=== PATIENT | female | born 1995 | race Caucasian/White ===

== ENCOUNTER 2024-07-08 15:29 | Emergency (ER) | payer MEDICAID, SELFPAY ==
[2024-07-08 15:36] VITALS: BP 104/82; PULSE 93; RESP 14; TEMP 36.6; O2SAT 99
--- NOTE | 2024-07-08 17:05 | ED.SKABFB ---
HPI - Skin/Abscess/Foreign Bdy General Chief complaint: Skin/Abscess/Foreign Body Stated complaint: rash on legs Time Seen by Provider: 07/08/24 16:08 Source: patient Mode of arrival: ambulatory Limitations: no limitations History of Present Illness HPI narrative: This is a 29 year old female that presents to the ER for a rash to the legs. Reports the rash is itchy and painful. Noted it a couple of days ago to the left calf. Now is present on the right thigh. No new exposures. Denies fevers. Related Data Allergies Allergy/AdvReac Type Severity Reaction Status Date / Time No Known Allergies Allergy Verified 07/08/24 15:31 Review of Systems Review of Systems: CONSTITUTIONAL: Denies fever SKIN: Reports rash and itching. All systems reviewed & are unremarkable except as noted in HPI and below PMFSH Past Medical History Medical History (Updated 07/08/24 @ 17:23 by [place]ia Lindsay PA-C) History of asthma Exam Narrative: GENERAL: Well-appearing, well-nourished, and in no acute distress. HEAD: Normocephalic, atraumatic. EYES: EOMI. EXTREMITIES: Normal range of motion. No edema. Few small ulcerating lesions to the left calf and right posterior thigh. No surrounding redness SKIN: Warm, dry, no rash. NEURO: No focal deficits. Alert and oriented x3. PSYCH: Normal mood and affect Course Course Emergency Course: Patient agrees with plan of care Vital Signs Vital signs: Vital Signs Temperature 97.8 F 07/08/24 15:36 Pulse Rate 93 07/08/24 15:36 Respiratory Rate 14 07/08/24 15:36 Blood Pressure 104/82 07/08/24 15:36 Pulse Oximetry 99 07/08/24 15:36 Oxygen Delivery Room Air 07/08/24 15:36 Temperature 97.8 F 07/08/24 15:36 Pulse Rate 93 07/08/24 15:36 Respiratory Rate 14 07/08/24 15:36 Blood Pressure 104/82 07/08/24 15:36 Pulse Oximetry 99 07/08/24 15:36 Oxygen Delivery Room Air 07/08/24 15:36 MDM - Skin/Abscess/Foreign Bdy MDM Narrative Medical decision making narrative: Patient presents to the ER for itchy rash. Two small areas noted to the legs. Will be started on topical steroid. Given prescription for oral antibiotics in case there is secondary bacterial infection. She is to follow up with PCP. She was given warnings to return to the ER Differential Diagnosis Differential diagnosis: Likely cellulitis, eczema, insect bites, impetigo and contact dermatitis Critical Care Time Critical Care Time Critical Care Time: No Discharge Plan Discharge Clinical Impression: Rash and nonspecific skin eruption Patient Disposition: Home, Self-Care Condition: Stable Instructions: Antibiotic Form, Acute Rash (ED) Additional Instructions: Return to the emergency department if you experience fever, redness and swelling of your wounds, abnormal drainage from your wounds, or any other symptoms that are concerning to you Benadryl as needed for severe itching. Apply steroid cream as prescribed and take oral antibiotic as prescribed Follow-up with primary care doctor Prescriptions: New triamcinolone acetonide 0.1 % cream 1 applic topical BID 7 Days Qty: 15 0RF cephalexin 500 mg capsule 500 mg PO Q6H 7 Days Qty: 28 0RF Follow-up/Referrals: Oscar Allison MD [Primary Care Provider] -
== END 2024-07-08 17:30 | disposition home or self-care (01) ==
PROVIDERS: Emergency Provider Physician Assistant; PCP Internal Medicine
DX: R21 Rash and other nonspecific skin eruption (principal)
CPT/HCPCS: 99283

== ENCOUNTER 2024-07-23 18:55 | Emergency (ER) | payer MEDICAID, SELFPAY ==
--- NOTE | ~2024-07-23 | XR_ITS ---
EXAMINATION: XR chest 2V Exam Date/Time: 07/23/2024 23:45 CDT HISTORY: sob Comparison: None. RESULT: Lines, tubes, and devices: None. Lungs and pleura: Clear. Cardiomediastinal silhouette: Normal. Other: No acute osseous or upper abdominal finding. IMPRESSION: No acute cardiopulmonary process. Reviewed, dictated and finalized at location K.
[2024-07-23 19:39] VITALS: BP 113/80; PULSE 86; RESP 14; TEMP 36.6; O2SAT 100
--- NOTE | 2024-07-23 19:44 | PC.NURSE ---
When asked the [facility] Suicide Rating during time of triage pt answered that over the past month she has had thought of suicide due to dental pain and old flashbacks . pt denied any plan to harm herself and states she does not have any intention of acting on these thoughts.
[2024-07-23] MEDS: AMOXICILLIN/CLAVULANATE K 875-125 MG TAB 1 TABLET PO (23:58)
--- NOTE | 2024-07-24 00:07 | ECG_ITS ---
Test Date: 2024-07-24 00:07:39 Measurements Intervals [place] Rate: 69 P: 58 [place]: 217 QRS: 59 QRSD: 85 T: 9 QT: 389 QTc: 418 Interpretive Statements SINUS RHYTHM WITH FIRST DEGREE AV BLOCK NONSPECIFIC T-WAVE ABNORMALITY No previous ECG available for comparison Electronically Signed On 07-24-2024 10:07:44 CDT by Bora Max M.D.
[2024-07-24 00:13] LABS: Basophils Percent Auto 0.5 % (0.2-1.2); Eosinophils Absolute Auto 0.2 K/mm3 (0-0.3); Eosinophils Percent Auto 3.6 % (0-4.4); Hematocrit 38.1 % (37.0-47.0); Hemoglobin 12.8 g/dL (12.0-15.0); Immature Granulocyte Absolute 0.01 K/mm3 (0.00-0.031); Immature Granulocyte Percent A 0.2 % (0-0.5); Lymphocytes Absolute Auto 1.92 K/mm3 (0.9-3.2); Lymphocytes Percent Auto 33.2 % (18.3-44.2); Mean Corpuscular HGB Conc 33.6 g/dl (32-36); Mean Corpuscular Hemoglobin 28.3 pg (26-34); Mean Corpuscular Volume 84.3 fl (80-100); Mean Platelet Volume 10.7 fl (7.4-10.4); Monocytes Absolute Auto 0.5 K/mm3 (0.1-0.6); Monocytes Percent Auto 8.5 % (2.6-8.5); Neutrophils Absolute Auto 3.1 K/mm3 (1.3-6.7); Platelet Count Result 268 k/mm3 (150-375); Red Blood Count 4.52 M/mm3 (4.2-5.4); Red Cell Distribution Width 13.6 % (11.5-14.5); White Blood Count 5.8 K/mm3 (4.5-10.0)
[2024-07-24 00:29] LABS: Lipase 215 U/L (23-300)
[2024-07-24 00:32] LABS: D Dimer < 0.27 ug/mL (<0.48)
--- NOTE | 2024-07-24 00:54 | ED.DENTAL ---
HPI - Dental/Oral General Chief complaint: Dental/Oral Stated complaint: tooth pain Time Seen by Provider: 07/23/24 22:50 Source: patient Mode of arrival: ambulatory Limitations: no limitations History of Present Illness HPI Narrative: Patient is a 29 y/o female who presents the ED with multiple complaints. Patient reports she has had problems with a cavity tooth, tooth 5, for the past few months. Has been unable to see a dentist. She states over the last few days, she has had increased pain with the tooth. She also reports having a severe metallic taste in her mouth. She reports having difficulty breathing with laying flat. States she has noticed this over the last few nights when laying down to go to bed. She has to sit up to improve her breathing. She does admit feeling mildly anxious with this. She also reports difficulty swallowing. Reports subjective fevers. Denies nausea, vomiting. Denies cough or cold symptoms. Denies history of blood clots. Related Data Allergies Allergy/AdvReac Type Severity Reaction Status Date / Time No Known Allergies Allergy Verified 07/08/24 15:31 Review of Systems Review of Systems: All systems reviewed & are unremarkable except as noted in HPI. All systems reviewed & are unremarkable except as noted in HPI and below PMFSH Past Medical History Medical History History of asthma Exam Narrative: GENERAL: Well appearing, well-nourished, non-toxic, in no acute distress. HEAD: Normocephalic, atraumatic. ENT: Cavity to tooth #5, R upper tooth with focal tenderness. No significant gum erythema or inflammation surrounding. No focal abscess. No drainage. Posterior pharynx is clear. No tonsillar hypertrophy or exudate. Uvula is midline. Maintaining secretions. No stridor. RESPIRATORY: Airway patent, respirations nonlabored. Clear to auscultation bilaterally, no rales, rhonchi, wheezing. No significant focal lung sounds. No stridor or distress. CARDIOVASCULAR: Regular rate and rhythm without murmurs, rubs, or gallops. MUSCULOSKELETAL: Moves all extremities. No gross deformities. SKIN: Warm, dry, normal color. NEURO: A&O X3. Speech clear. Cranial nerves II-XII grossly intact. Steady gait. No ataxic movements. PSYCHIATRIC: Appropriate mood and affect. Normal interaction. Course Vital Signs Vital signs: Vital Signs Temperature 97.8 F 07/23/24 19:39 Pulse Rate 86 07/23/24 19:39 Respiratory Rate 14 07/23/24 19:39 Blood Pressure 113/80 07/23/24 19:39 Pulse Oximetry 100 07/23/24 19:39 Oxygen Delivery Room Air 07/23/24 19:39 Temperature 97.8 F 07/23/24 19:39 Pulse Rate 67 07/24/24 01:12 Respiratory Rate 18 07/24/24 01:12 Blood Pressure 127/81 07/24/24 01:12 Pulse Oximetry 98 07/24/24 01:12 Oxygen Delivery Room Air 07/23/24 19:39 MDM - Dental/Oral MDM Narrative Medical decision making narrative: Patient presented to ED with multiple complaints, dental pain, shortness of breath, subjective fevers. Patient repeatedly stating that she is concerned for a blood infection. Vital signs are stable here. Patient is afebrile. No evidence of hemodynamic instability. Discussed treating for dental infection with antibiotics. Given dose of Augmentin here. Advised patient she will need to follow-up with dentist for further evaluation. There is no evidence of airway compromise or respiratory distress at this time. There is no evidence of focal abscess. Patient is maintaining secretions. Patient requesting workup for shortness of breath. Chest x-ray was obtained and is clear. EKG is unremarkable. Troponin undetectable. D-dimer within normal limits. Basic laboratory studies are unremarkable. No leukocytosis. Normal lipase. Normal electrolytes. Feel patient is safe for discharge home with further evaluation as an outpatient. Suspect anxiety contributing to sx's. Recommended that p
[2024-07-24 00:55] LABS: Alanine Aminotransferase 17 U/L (6-35); Albumin Level 4.5 g/dL (3.5-5.1); Alkaline Phosphatase 56 U/L (38-126); Anion Gap 8 mmol/L (4-12); Aspartate Amino Transferase 28 U/L (14-36); Bilirubin,Total 0.3 mg/dL (0.2-1.3); Blood Urea Nitrogen 7 mg/dL (7-17); Calcium 9.6 mg/dL (8.4-10.2); Carbon Dioxide 29 mmol/L (22-30); Chloride 101 mmol/L (98-107); Estimated Glomerular Filt Rate > 60; Glucose 87 mg/dL (65-110); Sodium 138 mmol/L (137-145)
[2024-07-24 01:07] LABS: Troponin I < 0.012 ng/mL (0.000-0.034)
[2024-07-24 01:12] VITALS: BP 127/81; PULSE 67; RESP 18; O2SAT 98
== END 2024-07-24 01:23 | disposition home or self-care (01) ==
PROVIDERS: Emergency Provider Physician Assistant; PCP Internal Medicine
DX: K02.9 Dental caries, unspecified (principal); R06.02 Shortness of breath; J45.909 Unspecified asthma, uncomplicated; I44.0 Atrioventricular block, first degree; R94.31 Abnormal electrocardiogram [ECG] [EKG]
CPT/HCPCS: 36415; 71046; 80053; 83690; 84484; 85025; 85380; 93005; 99284; A9270

== ENCOUNTER 2024-12-28 14:15 | Emergency (ER) | payer OTHER, SELFPAY ==
--- NOTE | ~2024-12-28 | XR_ITS ---
XR abdomen/kub 1V Ordering provider: Doreen Michelle History: . constipation . Comparison: None. FINDINGS: BOWEL: Nonobstructive bowel gas pattern. Fecal material is loaded in the colon suggestive of constipa tion. ORGANOMEGALY: None. SIGNIFICANT PATHOLOGIC CALCIFICATIONS: None. OTHER: No free air is seen under the diaphragm. IMPRESSION: NO ACUTE ABDOMINAL FINDINGS. Constipation. Reviewed, dictated and finalized at location A. [facility]
[2024-12-28 14:27] VITALS: BP 124/93; PULSE 92; RESP 18; TEMP 36.7; O2SAT 99
--- OUTSIDE RECORDS SUMMARY | 2024-12-28 14:29 | XMS_ITS ---
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 Name Role Phone Oscar Allison Primary Care Provider Hernandez, Randolph Duggan [phone] REASON FOR VISIT 4 week F/U Social History Sex Assigned At : Social History Observation Description Sex Assigned At Female Encounters Encounter Location Date Provider Diagnosis [address] [place] [address] 12/04/2024 Randolph Hernandez Plan Of Treatment No Information Progress Notes * Mary LOOMISOB:[birth year] (29 yo F)Acc No.[id number]:12/04/2024 UNLOCKED PROGRESS NOTE Patient: Missy BASURTO Provider: Leonor Hernandez APN :[id number] A ge:29 Y S ex:Female Date:12/04/2024 Address:[address] Pcp:Oscar Allison Subjective: * Chief Complaints: * 1 . 4 week F/U. * Medical History: Objective: * Vitals: Assessment: Plan: * Treatment: * * Electronic signature of Randolph Hernandez on 12/28/2024 at 02:29 PM TREKKING GUIDE Sign off status: Pending * Provider: Leonor Hernandez APN Date: 0 12/04/2024 Generated for Printi ng/Faxing/eTransmitting on: 0 12/28/2024 02:29 PM TREKKING GUIDE
--- OUTSIDE RECORDS SUMMARY | 2024-12-28 14:30 | XMS_ITS | Clinical Summary ---
Author Organization [facility] Address [address] [place] [address] Care Team Providers Care Sign Designer Name Role Phone Sabra Pabon Ramiro PA-[employer]IENT[employer] Primary Care Provider Source Comments [facility],non-owned Affiliates and Associated Physician Practices is amultiple site organization consisting of ambulatory clinics and hospital sitesin [place], [place], [place] and [place]. This disclosure is being madepursuant to the Care Everywhere program and may not contain all information available regarding this patient. Last updated 18.[facility] Allergies No known active allergies Medications * Be aware that medications may not be up to date on this document. Alwaysverify current medications with the patient. Medication Sig Dispensed Refills Start Date End Date Status hydrOXYzine HCl (Atarax) 50 MG tabletIndications: Anxiety Take 1 (one) tablet by mouth every 6 hours as needed Reasons: Feeling Anxious 30 tablet 1 08/18/2024 Active sertraline (Zoloft) 100 MG tabletIndications: Generalized Anxiety Disorder,Major Depressive Disorder,Posttraum atic Stress Disorder Take 1 (one) tablet by mouth once daily Reasons: Generalized Anxiety Disorder, Major Depressive Disorder, Posttraumatic Stress Disorder 15 tablet 1 08/18/2024 Active traZODone (Desyrel) 50 MG tabletIndications: Insomnia Take 1 (one) tablet by mouth nightly as needed for Insomnia Reasons: Trouble Sleeping 15 tablet 1 08/18/2024 Active metFORMIN (Glucophage) 500 MG tabletIndications: Type 2 Diabetes Mellitus Take 1 (one) tablet by mouth daily with breakfast Reasons: Type 2 Diabetes 15 tablet 1 08/18/2024 Active OLANZapine, disintegrating, (ZyPREXA Zydis) 10 MG tabletIndications: Major Depressive Disorder Take 1 (one) tablet by mouth at bedtime Reasons: Major Depressive Disorder 15 tablet 1 08/18/2024 Active sertraline (Zoloft) 100 MG tablet Take 1 (one) tablet by mouth once daily 30 tablet 08/23/2024 Active Active Problems Problem Noted Date Diagnosed Date Normocytic anemia 08/22/2024 Undifferentiated schizophrenia 08/22/2024 PTSD (post-traumatic stress disorder) 08/22/2024 Depressive disorder 08/15/2024 Suicidal ideation 08/13/2024 Depression, unspecified depression type 08/13/20 Urinary tract infection without hematuria, site unspecified 08/13/2024 Bizarre behavior 08/13/2024 Obese 04/02/2021 Polycystic ovary syndrome 04/02/2021 Family history of systemic lupus erythematosus 0 01/16/2021 Headache 01/16/2021 Social History Tobacco Use Types Packs/Day Years Used Date Smoking Tobacco: Never Smokeless Tobacco: Never Tobacco Cessation:Counseling Given: Not Answered Alcohol Use Standard Drinks/Week Comments Not Currently 0 (1 standard drink = 0.6 oz pur e alcohol) AUDIT-C Answer Date Recorded Q1: How often do you have a drink containing alcohol? Never 08/15/2024 Q2: How many drinks containi ng alcohol do you have on a typical day when you are drinking? Patient does not drink Q3: How often do you have si x or more drinks on one occasion? Never 08/15/2024 Overall Financial Resource Strain (CARDIA) Answe r Date Recorded How hard is it for you to pa y for the very basics like food, housing, medical care, and heating? Very hard 08/15/2024 [facility] - Occupational Stress Questionnaire Answer Date Recorded Do you feel stress - tense, restless, nervous, or anxious, or unable to sleep at night because your mind is troubled all the time - these days? Very much 08/15/2024 Hunger Vital Sign Answer Date Recorded Within the past 12 months, y ou worried that your food would run out before you got the money to buy more. Sometimes true Within the past 12 months, t he food you bought just didn't last and you didn't have money to get more. Often true PRAPARE - Transportation Answer Date Re corded In the past 12 months, has l ack of transportation kept you from medical appointments or from getting medications? Yes 07/25 In the past 12 months, has l ack of transportation kept you from meetings, work, or from getting things needed for daily living? Yes 08/15/2024 Housing Stability Vital Sign Answer Alexi e Recorded In the last 12 months, was t here a time when you were not able to pay the mortgage or rent on time? Yes 08/15/2024 In the past 12 months, how m any times have you moved where you were living? 1 08/15/2024 At any time in the past 12 m [facility], were you homeless or living in a group home (including now)? No 08/15/2024 Sex and Gender Information Value Date Recorded Sex Assigned at Not on file Gender Identity Not on file Sexual Orientation Not on file Last Filed Vital Signs Vital Sign Reading Time Taken Comments Blood Pressure 134/82 08/23/2024 10:54 AM CDT Pulse 74 08/23/2024 10:54 AM CDT Temperature 36.7 C (98 F) 08/22/2024 8:36 PM CDT Respiratory Rate 17 08/23/2024 10:54 AM CDT Oxygen Saturation 98% 08/23/2024 10:54 AM CDT Inhaled Oxygen Concentration - - Weight 60.3 kg (133 lb) 08/22/2024 8:36 PM CDT Height 154.9 cm (5' 1 ) 08/22/2024 8:36 PM CDT Body Mass Index 25.13 08/22/2024 8:36 PM CDT Plan of Treatment Health Maintenance Due Date Last Done Comments HEPATITIS C SCREENING 12/31/2010 DTAP/TDAP/TD VACCINES (1 - Tdap) 01/05/2012 HEPATITIS B VACCINE (1 of 3 - 19+ 3-dose series) 01/05/2012 COVID-19 VACCINE ( - 2023-2 5 season) 2024 INFLUENZA VACCINE (#1) 2024 DEPRESSION SCREENING 10/24/2024 PAP SMEAR 04/19/2025 04/19/2022 ZOSTER VACCINE (1 of 2) 2043 HIV SCREENING Completed 08/13/2024 HIB VACCINE Aged Out No longer eligi ble based on patient's age to complete this topic HPV VACCINE Aged Out No longer eligi ble based on patient's age to complete this topic MENINGOCOCCAL (Group B) VACCINE Aged Out No longer eligible based on patient's age to complete this topic MENINGOCOCCAL VACCINE Aged Out No raza thalia eligible based on patient's age to complete this topic PNEUMOCOCCAL VACCINE Aged Out No long er eligible based on patient's age to complete this topic Procedures Procedure Name Priority Date/Time Associated Diagnosis Comments HIV-1 HIV-2 ANTIBODY + HIV P24 AG PANEL STAT 08/13/2024 3:29 PM CDT from Last 3 Months or Most Recently Relevant to Health Maintenance Results * HIV-1 HIV-2 ANTIBODY + HIV P24 AG PANEL (08/13/2024 3:29 PM CDT) HIV Antigen/Antibod y 1 & 2 Non-reacti ve Non-react polly 08/13/2024 4:24 PM CDT [facility] Comment:No Laboratory eviden ce of HIV infection. Blood BLOOD SPECIMEN / Unknown Venipuncture / Unknown 08/13/2024 3:29 PM CDT 08/13/2024 3:33 PM CDT [place] Renee MD LAB - CHEMISTRY ORD ERABLES [facility] [address] [place] [address], [facility] [phone] from Last 3 Months or Most Recently Relevant to Health Maintenance Advance Directives * Full Code (Latest Code Status on File) Date Activated Date Inactivated Comments 08/15/2024 3:33 AM 08/18/2024 5:01 PM Care Teams Sign Designer Relationship Specialty Start Date End Date Sabra Pabon, CHAIR MAKER-[employer]IENT[employer] [address] [place] [address] [phone] PCP - General 05/23/22
--- OUTSIDE RECORDS SUMMARY | 2024-12-28 14:30 | XMS_ITS | Patient Health Summary ---
Author Organization [facility] Address [address] [place] [address] Care Team Providers Care Glaze Maker Name Role Phone Sabra Pabno Ramiro PA-WATER PUMPING STATION ENGINEER Primary Care Provider Note from [facility],non-owned Affiliates and Associated Physician Practices is amultiple site organization consisting of ambulatory clinics and hospital sitesin [place], [place], [place] and [place]. This disclosure is being madepursuant to the Care Everywhere program and may not contain all information available regarding this patient. Last updated 18.[facility] Trampoline Allergies No known active allergies Medications * Be aware that medications may not be up to date on this document. Alwaysverify current medications with the patient. * hydrOXYzine HCl (Atarax) 50 MG tablet(Started 08/18/2024) Take 1 (one) tablet by mouth every 6 hours as needed Reasons: Feeling Anxious 1 refill by 08/18/2025 * sertraline (Zoloft) 100 MG tablet(Started 08/18/2024) Take 1 (one) tablet by mouth once daily Reasons: Generalized Anxiety Disorder, Major Depressive Disorder, Posttraumatic Stress Disorder 1 refill by 08/18/2025 * traZODone (Desyrel) 50 MG tablet(Started 08/18/2024) Take 1 (one) tablet by mouth nightly as needed for Insomnia Reasons: Trouble Sleeping 1 refill by 08/18/2025 * metFORMIN (Glucophage) 500 MG tablet(Started 08/18/2024) Take 1 (one) tablet by mouth daily with breakfast Reasons: Type 2 Diabetes 1 refill by 08/18/2025 * OLANZapine, disintegrating, (ZyPREXA Zydis) 10 MG tablet(Started 08/18/2024) Take 1 (one) tablet by mouth at bedtime Reasons: Major Depressive Disorder 1 refill by 08/18/2025 * sertraline (Zoloft) 100 MG tablet(Started 08/23/2024) Take 1 (one) tablet by mouth once daily Active Problems Problem Noted Date Diagnosed Date Normocytic anemia 08/22/2024 Undifferentiated schizophrenia 08/22/2024 PTSD (post-traumatic stress disorder) 08/22/2024 Depressive disorder 08/15/2024 Suicidal ideation 08/13/2024 Depression, unspecified depression type 08/13/20 24 Urinary tract infection without hematuria, site unspecified [...] medical care, and heating? Very hard 08/15/2024 [facility] [place] [facility] Occup[facility] ional [facility] - Occupational Stress [...] any time in the past 12 m [facility], were you homeless or living in a alf (including now)? No 08/15/2024 Sex and Gender [...] Mass Index 25.13 08/22/2024 8:36 PM CDT Procedures * URINE DRUG SCREEN IMMUNOASSAY(Performed 08/23/2024) * HCG BETA BLOOD QUANTITATIVE(Performed 08/22/2024) * ALCOHOL ETHYL BLOOD(Performed 08/22/2024) * COMPREHENSIVE METABOLIC PANEL(Performed 08/22/2024) * CBC W AUTO DIFFERENTIAL(Performed 08/22/2024) * LIPID PROFILE(Performed 08/17/2024) * HEMOGLOBIN A1C(Performed 08/17/2024) * DRUG SCREEN EXPANDED TOXICOLOGY URINE PANEL(Performed 08/13/2024) * SYPHILIS ANTIBODY CASCADING REFLEX(Performed 08/13/2024) * HIV-1 HIV-2 ANTIBODY + HIV P24 AG PANEL(Performed 08/13/2024) * URINE MICROSCOPIC ONLY REFLEX TO CULTURE(Performed 08/13/2024) * URINALYSIS REFLEX MICROSCOPIC REFLEX CULTURE(Performed 08/13/2024) * URINE DRUG SCREEN IMMUNOASSAY(Performed 08/13/2024) * CULTURE URINE(Performed 08/13/2024) * TSH REFLEX FREE T4(Performed 08/13/2024) * HCG BETA BLOOD QUANTITATIVE(Performed 08/13/2024) * ALCOHOL ETHYL BLOOD(Performed 08/13/2024) * COMPREHENSIVE METABOLIC PANEL(Performed 08/13/2024) * CBC W AUTO DIFFERENTIAL(Performed 08/13/2024) * MRI BRAIN WWO CONTRAST(Performed 06/19/2022) Performed for Chronic migraine without aura without status migrainosus, not intractable * CREATININE - POCT INTERFACED(Performed 06/19/2022) * RIBOSOMAL P PROTEIN ANTIBODY(Performed 02/18/2021) Performed for Positive BRANDY (antinuclear antibody) * URINALYSIS MICROSCOPIC ONLY REFLEXED(Performed 02/18/2021) Performed for Positive BRANDY (antinuclear antibody) * PROTEIN CREATININE RATIO URINE RANDOM PNL(Performed 02/18/2021) Performed for Positive BRANDY (antinuclear antibody) * URINALYSIS REFLEX MICROSCOPIC REFLEX CULTURE(Performed 02/18/2021) Performed for Positive BRANDY (antinuclear antibody) * C-REACTIVE PROTEIN(Performed 02/18/2021) Performed for Positive BRANDY (antinuclear antibody) * ERYTHROCYTE SEDIMENTATION RATE(Performed 02/18/2021) Performed for Positive BRANDY (antinuclear antibody) * COMPREHENSIVE METABOLIC PANEL(Performed 02/18/2021) Performed for Positive BRANDY (antinuclear antibody) * CBC W AUTO DIFFERENTIAL(Performed 02/18/2021) Performed for Positive BRANDY (antinuclear antibody) * BETA-2 GLYCOPROTEIN 1 ANTIBODY IGG/IGM PANEL(Performed 02/18/2021) Performed for Positive BRANDY (antinuclear antibody) * CARDIOLIPIN ANTIBODY IGG/IGM PANEL(Performed 02/18/2021) Performed for Positive BRANDY (antinuclear antibody) * LUPUS ANTICOAGULANT PANEL W RFLX(Performed 02/18/2021) Performed for Positive BRANDY (antinuclear antibody) * RHEUMATOID FACTOR BLOOD QUANTITATIVE(Performed 02/18/2021) Performed for Positive BRANDY (antinuclear antibody) * COMPLEMENT C3 C4 PANEL(Performed 02/18/2021) Performed for Positive BRANDY (antinuclear antibody) * DNA ANTIBODY DOUBLE STRANDED(Performed 02/18/2021) Performed for Positive BRANDY (antinuclear antibody) * YARELY ANTIBODY PANEL(Performed 02/18/2021) Performed for Positive BRANDY (antinuclear antibody) * CULTURE URINE(Performed 02/18/2021) Performed for Positive BRANDY (antinuclear antibody) Results * URINE DRUG SCREEN IMMUNOASSAY (08/23/2024 7:25 AM CDT) Only the most recent of2 resultswithin the time period is included. [facility] Amphetamines Screen Urine Negative Negative: < 1000 ng/mL 08/23/2024 7:59 AM [facility] Barbiturates Screen Urine Negative Negative: < 200 ng/mL 08/23/2024 7:59 AM [facility] Benzodiazepine Screen Urine Negative Negative: < 200 ng/mL 08/23/2024 7:59 AM [facility] Opiates Urine Negative Negative: < 300 ng/mL 08/23/2024 7:59 AM [facility] Cocaine Metabolites Urine Negative Negative: < 300 ng/mL 08/23/2024 7:59 AM [facility] Phencyclidine Screen Urine Negative Negative: < 25 ng/ml 08/23/2024 7:59 AM [facility] Cannabinoids Screen Urine Negative Negative: <50 ng/mL 08/23/2024 7:59 AM [facility] Methadone Screen Urine Negative Negative: < 300 ng/mL 08/23/2024 7:59 AM [facility] Fentanyl Screen Urine Negative Negative: <1.5 ng/mL 08/23/2024 7:59 AM [facility] Urine URINE / Unknown Collection / Unknown 08/23/2024 7:25 AM CDT 08/23/2024 7:28 AM [facility] - 08/23/2024 7:59 AM CDT The Urine Toxicology Screening Panel does not screen for Propoxyphene, Meprobamate, Carisoprodol, Trazodone, euop-pif-ezirdnm medications and/or volatiles (Acetone, Isopropanol, Methanol or Ethylene Glycol). Ethanol, Salicylate, Acetaminophen, Tricyclic Antidepressants and several therapeutic drugs may be individually assayed in serum or plasma specimen. Toxicology testing by the [facility] is an aid to medical diagnosis and treatment of patients. No documented chain of custody was maintained. Results are intended to be used for clinical purposes only. David Patel MD LAB - URINE CHEMISTR Y ORDERABLES [facility] [address] [place] [address], [facility] [phone] * (ABNORMAL) CBC W AUTO DIFFERENTIAL (08/22/2024 10:43 PM T) Only the most recent of3 resultswithin the time period is included. WBC 6.3 4.0 - 10.7 x10E9/L 08/22/2024 11:04 PM [facility] RBC Count 3.96 3.90 - 5.20 x10E12/L 08/22/2024 11:04 PM [facility] Hemoglobin 11.2(L) 11.9 - 15.8 g/dL 08/22/2024 11:04 PM [facility] Hematocrit 32.4(L) 34.8 - 46.1 % 08/22/2024 11:04 PM [facility] MCV 81.8 80.0 - 98.0 fL 08/22/2024 11:04 PM [facility] MCH 28.3 26.7 - 33.6 pg 08/22/2024 11:04 PM [facility] MCHC 34.6 31.7 - 36.3 g/dL 08/22/2024 11:04 PM [facility] RDW-CV 13.9 11.3 - 14.8 % 08/22/2024 11:04 PM [facility] Platelet Count 232 150 - 420 x10E9/L 08/22/2024 11:04 PM [facility] MPV 11.0 7.8 - 11.4 fL 08/22/2024 11:04 PM [facility] Neutrophil % 54.9 41.0 - 74.0 % 08/22/2024 11:04 PM [facility] Lymphocyte % 28.8 17.0 - 47.0 % 08/22/2024 11:04 PM [facility] Monocyte % 10.3 3.0 - 11.0 % 08/22/2024 11:04 PM [facility] Eosinophil % 5.2 0.0 - 7.0 % 08/22/2024 11:04 PM [facility] Basophil % 0.5 0.0 - 1.6 % 08/22/2024 11:04 PM [facility] Immature Granulocytes % 0.3 0.0 - 1.0 % 08/22/2024 11:04 PM [facility] Neutrophil Absolute 3.46 1.60 - 7.50 x10E9/L 08/22/2024 11:04 PM [facility] Lymphocyte Absolute 1.82 1.00 - 4.40 x10E9/L 08/22/2024 11:04 PM [facility] Monocyte Absolute 0.65 0.15 - 1.00 x10E9/L 08/22/2024 11:04 PM [facility] Eosinophil Absolute 0.33 0.00 - 0.60 x10E9/L 08/22/2024 11:04 PM [facility] Basophil Absolute 0.03 0.00 - 0.13 x10E9/L 08/22/2024 11:04 PM [facility] Blood BLOOD SPECIMEN / Unknown Venipuncture / Unknown 08/22/2024 10:43 PM CDT 08/22/2024 11:01 PM CDT David Patel MD LAB - HEMATOLOGY ORD ERABLES [facility] [address] [place] [address], [facility] [phone] * (ABNORMAL) COMPREHENSIVE METABOLIC PANEL (08/22/2024 10:43 PM CDT) Only the most recent of3 resultswithin the time period is included. BUN 8 7 - 26 mg/dL 08/22/2024 11:26 PM T [facility] Creatinine 0.60 0.56 - 0.96 mg/dL 08/22/2024 11:26 PM [facility] Sodium 140 136 - 145 mmol/L 08/22/2024 11:26 PM [facility] Potassium 3.6 3.5 - 4.5 mmol/L 08/22/2024 11:26 PM [facility] Chloride 109(H) 98 - 107 mmol/L 08/22/2024 11:26 PM [facility] CO2 23 22 - 29 mmol/L 08/22/2024 11:26 PM [facility] Glucose 107(H) 70 - 99 mg/dL 08/22/2024 11:26 PM [facility] Calcium 9.2 8.4 - 10.2 mg/dL 08/22/2024 11:26 PM [facility] Protein Total 7.0 6.0 - 8.3 g/dL 08/22/2024 11:26 PM [facility] Albumin 3.7 3.4 - 5.0 g/dL 08/22/2024 11:26 PM [facility] Bilirubin Total 0.2 0.2 - 1.2 mg/dL 08/22/2024 11:26 PM [facility] Alkaline Phosphatase 44 40 - 150 U/L 08/22/2024 11:26 PM [facility] ALT 23 5 - 55 U/L 08/22/2024 11:26 PM [facility] AST 24 5 - 34 U/L 08/22/2024 11:26 PM [facility] Anion Gap 8 6 - 16 08/22/2024 11:26 PM [facility] BUN/Creatinine Ratio 13 7 - 23 08/22/2024 11:26 PM [facility] Osmolality Calculated 289 275 - 295 mOsm/kg 08/22/2024 11:26 PM [facility] Albumin/Globulin Ratio 1.1 1.1 - 2.3 08/22/2024 11:26 PM [facility] eGFR by CKD-EPI >90 >=90 mL/min/1.7 3 m2 08/22/2024 11:26 PM [facility] Blood BLOOD SPECIMEN / Unknown Venipuncture / Unknown 08/22/2024 10:43 PM CDT 08/22/2024 11:01 PM CDT David Patel MD LAB - CHEMISTRY [place] Performing Organization Address [facility] Co de Phone Number [address] [address], [facility] [phone] * HCG BETA BLOOD QUANTITATIVE (08/22/2024 10:43 PM CDT) Only the most recent of2 resultswithin the time period is included. [facility] Beta-hCG Total Quantitative <3 mIU/mL 08/22/2024 11:32 PM CDT [facility] Comment: HCG Numeric Result Interpretation: Non- Females: < 5 mIU/mL Post-Menopausal Females: < 7 mIU/mL This assay is cleared for use in the early detection of only. It is not approved for any other uses such as tumor marker screening, tumor marker monitoring, etc. and should not be used for any other purposes. Blood BLOOD SPECIMEN / Unknown Venipuncture / Unknown 08/22/2024 10:43 PM CDT 08/22/2024 11:01 PM CDT David Patel MD LAB - CHEMISTRY [place] Performing Organization Address [facility] de Phone Number [address] [address], [facility] [phone] * ALCOHOL ETHYL BLOOD (08/22/2024 10:43 PM CDT) Only the most recent of2 resultswithin the time period is included. [facility] Ethanol (mg/dL) <10 <10 mg/dL 11:26 PM CDT [facility] Ethanol Calculated (g/dL) <0.010 <=0.010 g/dL 08/22/2024 11:26 PM CDT [facility] Blood BLOOD SPECIMEN / Unknown Venipuncture / Unknown 08/22/2024 10:43 PM CDT 08/22/2024 11:01 PM CDT Narrative [facility] - 08/22/2024 11:26 PM CDT Ethanol Interp <10: None Detected. Depression of FAMILY SERVICES MANAGER: >100 mg/dl Potentially Critical: >250 mg/dl Potentially Fatal >400 mg/dl Ethanol in the patient's blood will contribute to the osmolar gap. Ethanol's contribution to the osmolar gap can be estimated by dividing the concentration of ethanol in mg/dL by 4.6. This test is for clinical use only and does not equal a TIM for legal purposes. David Patel MD LAB - CHEMISTRY [place] [facility] Organization Address City/State/ZIP Co de Phone Number [facility] [address] [place] [address], [facility] [phone] * HEMOGLOBIN A1C (08/17/2024 6:48 AM CDT) [facility] Hemoglobin A1c 4.6 <5.7 % 08/17/2024 7:11 AM CDT [facility] Estimated Average Glucose 85 mg/dL 08/17/2024 7:11 AM CDT [facility] Blood BLOOD SPECIMEN / Unknown Venipuncture / Unknown 08/17/2024 6:48 AM CDT 08/17/2024 6:56 AM CDT [facility] - 08/17/2024 7:11 AM CDT HbA1c Interpretation: Normal: < 5.7% Pre-diabetes: 5.7-6.4% Diabetes: Equal to or greater than 6.5% Test results diagnostic of diabetes should be repeated for confirmation. Treatment target values recommended by ADA and other clinical organizations should be used to evaluate metabolic control in patients. This test should not replace glucose testing for patients with Type 1 diabetes, pediatric patients, or women. Falsely low HbA1c results may be observed in patients with clinical conditions that shorten erythrocyte life span or decrease mean erythrocyte age such as the presence of unstable hemoglobin variants, elevated hemoglobin F level or other causes of hemolytic anemia. HbA1c may not accurately reflect glycemic control when clinical conditions that affect erythrocyte survival are present. Severe Iron deficiency anemia may yield falsely high results. Hemoglobin A1c assay should not be used to diagnose or monitor diabetes in patients with malignancy, recent blood transfusion, chronic kidney or liver disease. This method may yield falsely low results when hemoglobin (HbF) exceeds 5% in the specimen. The [employer] assay for the measurement of HbA1c is a National Glycohemoglobin Standardization Program (NGSP) certified method. Vasyl Bustamante MD LAB - CHEMISTRY [place] Performing Organization Address [facility] Co de Phone Number [facility] [address] [place] [address] * LIPID PROFILE (08/17/2024 6:48 AM CDT) Cholesterol 166 <200 mg/dL 08/17/2024 7:16 AM CDT [facility] Triglycerides 97 <150 mg/dL 08/17/2024 7:16 AM CDT [facility] HDL Cholesterol 42 >40 mg/dL 7:16 AM CDT [facility] LDL Calculated 105 <130 mg/dL 08/17/2024 7:16 AM CDT [facility] VLDL Calculated 19 <=30 mg/dL 7:16 AM CDT [facility] Chol HDL Ratio 4.0 <4.5 08/17/2024 7:16 AM CDT [facility] LDL/HDL Ratio 2.5 <5.0 08/17/2024 7:16 AM CDT [facility] Blood BLOOD SPECIMEN / Unknown Venipuncture / Unknown 08/17/2024 6:48 AM CDT 08/17/2024 6:56 AM CDT Vasyl Bustamante MD LAB - CHEMISTRY [place] Performing Organization Address [facility] Co de Phone Number [facility] [address] [place] [phone] * SYPHILIS ANTIBODY CASCADING REFLEX (08/13/2024 3:29 PM CDT) Treponema pallidum Antibody Non-react polly Non-react polly 08/13/2024 4:24 PM CDT [facility] Comment: No Laboratory evidence of syphilis infection. Note: Circulating antibodies may be low or undetectable in early infection. If recent exposure is suspected, re-draw sample in 2-4 weeks and repeat testing. Blood BLOOD SPECIMEN / Unknown Venipuncture / Unknown 08/13/2024 3:29 PM CDT 08/13/2024 3:33 PM CDT Berlin Renee MD LAB - SEROLOGY ORDE RABLES Performing Organization Address City/[facility]/ZIP Co de Phone Number [facility] [address] [place] [address], [facility] [phone] * (ABNORMAL) DRUG SCREEN EXPANDED TOXICOLOGY URINE PANEL (08/13/2024 3:29 PM CDT) [facility] Expanded Drug Screen, Urine Positive(A) Negative 08/14/2024 1:28 PM CDT [facility] Findings Caffeine Sertraline 08/14/2024 1:28 PM CDT [facility] Urine URINE / Unknown Collection / Unknown 08/13/2024 3:29 PM CDT 08/13/2024 3:33 PM CDT Narrative [facility] - 08/14/2024 1:28 PM CDT Testing performed by Liquid Chromat[employer]ad[employer] Time Flight Mass Spectrometry. While mass spectrometry is highly sensitive and specific, false-positive and false-negative findings may occur in rare circumstances. If consultation is needed, please contact the Clinical Pathology Resident mobile phone salesperson at [phone] (M-F, 8 am 5 pm) or [phone] after hours. This test does not include THC or barbiturates. This testing was developed by the [facility] in keeping with CLIA requirements. The test has not been cleared or approved by the U.S. Food and Drug Administration. Berlin Renee MD LAB - URINE BOXING PROMOTER RY ORDERABLES Performing Organization Address City/[facility]/ZIP Co de Phone Number [facility] [address] [place] [address], [facility] [phone] * HIV-1 HIV-2 ANTIBODY + HIV P24 AG PANEL (08/13/2024 3:29 PM CDT) [facility] HIV Antigen/Antibod y 1 & 2 Non-reacti ve Non-react polly 08/13/2024 4:24 PM CDT [facility] Comment:No Laboratory eviden ce of HIV infection. Blood BLOOD SPECIMEN / Unknown Venipuncture / Unknown 08/13/2024 3:29 PM CDT 08/13/2024 3:33 PM CDT Berlin Renee MD LAB - CHEMISTRY ORD ERABLES [facility] [address] [place] [address], [facility] [phone] * (ABNORMAL) URINE MICROSCOPIC ONLY REFLEX TO CULTURE (08/13/2024 1:27 PM CDT) Reflex Status Culture to follow 08/13/2024 2:18 PM CDT [facility] WBC UA 21-50(A) None Seen, 0-5 /HPF 08/13/2024 2:18 PM CDT [facility] Bacteria UA Trace(A) None /HPF 08/13/2024 2:18 PM CDT [facility] Squamous Epithelial Cells UA 11-20(A) None Seen, 0-2, 3-5 /HPF 08/13/2024 2:18 PM CDT [facility] Mucus UA 4+ /LPF 08/13/2024 2:18 PM CDT [facility] Hyaline Casts UA >20(A) None Seen, 0-2 /LPF 08/13/2024 2:18 PM CDT [facility] Urine URINE SPECIMEN OBTAINED BY CLEAN CATCH PROCEDURE / Unknown Collection / Unknown 08/13/2024 1:27 PM CDT 08/13/2024 1:35 PM CDT Narrative [facility] - 08/13/2024 2:18 PM CDT Sanjeev Alvarez MD LAB - URINALYSIS ORD ERABLES [facility] [address] [place] [address], [place] [phone] * (ABNORMAL) URINALYSIS REFLEX MICROSCOPIC REFLEX CULTURE (08/13/2024 1:27 PM CDT) Only the most recent of2 resultswithin the time period is included. Color UA Debra(A) Straw, Yellow 08/13/2024 2:15 PM CDT [facility] Clarity UA Cloudy(A) Clear 08/13/2024 2:15 PM CDT [facility] Specific [place] UA 1.028 1.005 - 1.030 08/13/2024 2:15 PM CDT [facility] pH UA 5.0 5.0 - 8.0 pH 08/13/2024 2:15 PM CDT [facility] Protein UA 2+(A) Negative 08/13/2024 2:15 PM CDT [facility] Glucose UA Negative Negative 08/13/2024 2:15 PM CDT [facility] Ketone UA Trace(A) Negative 08/13/2024 2:15 PM CDT [facility] Bilirubin UA Negative Negative 08/13/2024 2:15 PM CDT [facility] Blood UA Negative Negative 08/13/2024 2:15 PM CDT [facility] Nitrite UA Negative Negative 08/13/2024 2:15 PM CDT [facility] Leukocyte Esterase 3+(A) Negative 08/13/2024 2:15 PM CDT [facility] Urobilinogen UA 2.0(A) Negative mg/dL 08/13/2024 2:15 PM CDT [facility] Urine URINE SPECIMEN OBTAINED BY CLEAN CATCH PROCEDURE / Unknown Collection / Unknown 08/13/2024 1:27 PM CDT 08/13/2024 1:35 PM CDT [facility] - 08/13/2024 2:15 PM CDT Sanjeev Alvarez MD LAB - URINALYSIS ORD ERABLES [facility] [address] [place] [phone], [facility] [phone] * CULTURE URINE (08/13/2024 1:27 PM CDT) Only the most recent of2 resultswithin the time period is included. Culture Urine <10,000 CFU/mL urogenital matt WILIAN 08/14/2024 11:31 PM CDT [facility] Urine URINE SPECIMEN OBTAINED BY CLEAN CATCH PROCEDURE / Unknown Collection / Unknown 08/13/2024 1:27 PM CDT 08/13/2024 2:18 PM CDT Sanjeev Alvarez MD LAB - MICROBIOLOGY O RDERABLES Performing Organization Address City/[facility]/ZIP Co de Phone Number [facility] [address] [place] [address], [facility] [phone] * TSH REFLEX FREE T4 (08/13/2024 12:56 PM CDT) TSH 0.442 0.350 - 4.940 uIU/mL 08/13/2024 3:50 PM CDT [facility] Blood BLOOD SPECIMEN / Unknown Venipuncture / Unknown 08/13/2024 12:56 PM CDT 08/13/2024 1:04 PM CDT Berlin Renee MD LAB - CHEMISTRY ORD ERABLES Performing Organization Address City/[facility]/ZIP Co de Phone Number [facility] [address] [place] [address], [place] [phone] * MRI BRAIN WWO CONTRAST (06/19/2022 2:25 PM CDT) Anatomical Region Laterality Modality Head Magnetic Resonan ce 06/23/2022 10:5 1 AM CDT Impressions 06/23/2022 11:00 AM CDT IMPRESSION: 1.No evidence of acute intracranial findings or abnormal enhancement. 2.Clinical correlation for IIH/pseudotumor cerebri is recommended. > Interpreting Provider: Deepak Cruz MD on 06/23/2022 11:00 AM Narrative 06/23/2022 11:00 AM CDT MRI BRAIN WWO CONTRAST LOCATION [facility] DATE: 06/19/2022 2:27 PM EXAMINATION: Magnetic resonance imaging (MRI) of the brain without and with contrast HISTORY: G43.709: Chronic migraine without aura without status migrainosus, not intractable TECHNIQUE: MRI of the brain was performed prior to and following the uneventful administration of 7.5 mL intravenous gadolinium contrast according to standard protocol. CONTRAST: GADOBUTROL 1 MMOL/ML IV [facility] SO:7.5 mL COMPARISON: No prior study is available for comparison at the time of this dictation. FINDINGS: No evidence of acute or chronic hemorrhage is identified. No evidence of acute cerebral infarction is seen. The ventricles are of normal size, shape, and morphology. No mass effect or midline shift is seen. Mild periventricular white matter FLAIR hyperintensities are nonspecific, but can be seen in the setting of chronic small vessel ischemic disease. No enhancing lesions are identified. There is a partially empty sella. The corpus callosum appears normal. The posterior fossa, brainstem, and craniocervical junction appear normal. Other than mild paranasal sinus disease, the visualized portions of the orbits, paranasal sinuses, and mastoids appear normal. Normal flow voids are demonstrated in the carotid arteries and basilar artery. Suspected low-lying cerebellar tonsils although evaluation is limited on the sagittal FLAIR images. The calvarium and visualized cervical spine appear normal. Procedure Note Deepak Cruz MD - 06/23/2022 MRI BRAIN WWO CONTRAST LOC[place] [facility] [place] DATE: 06/19/2022 2:27 PM EXAMINATION: Magnetic resonance imaging (MRI) of the brain without andwith contrast HISTORY: G43.709: Chronic migraine without aura without statusmigrainosus, not intractable TECHNIQUE: MRI of the brain was performed prior to and following the uneventful administration of 7.5 mL intravenous gadolinium contrast according to standard protocol. CONTRAST: GADOBUTROL 1 MMOL/ML IV SSM SO:7.5 mL COMPARISON: No prior study is available for comparison at the time ofthis dictation. FINDINGS: No evidence of acute or chronic hemorrhage is identified. No evidence of acute cerebral infarction is seen. The ventricles are of normal size, shape, and morphology. No mass effect or midline shift is seen. Mild periventricular white matter FLAIR hyperintensities are nonspecific, but can be seen in the setting of chronic small vessel ischemic disease. No enhancing lesions are identified. There is a partially empty sella. The corpus callosum appears normal. The posterior fossa, brainstem, and craniocervical junction appear normal. Other than mild paranasal sinus disease, the visualized portions of the orbits, paranasal sinuses, and mastoids appear normal. Normal flow voids are demonstrated in the carotid arteries and basilar artery. Suspected low-lying cerebellar tonsils although evaluation is limited on thesagittal FLAIR images. The calvarium and visualized cervical spine appear normal. IMPRESSION: 1.No evidence of acute intracranial findings or abnormal enhancement. 2.Clinical correlation for IIH/pseudotumor cerebri is recommended. > Interpreting Provider: Deepak Cruz MD on 06/23/2022 11:00 AM Ochoa Warren MD MR ORDERABLES * CREATININE - POCT INTERFACED (06/19/2022 1:35 PM CDT) Creatinine POCT 0.88 0.30 - 1.30 mg/dL 06/19/2022 1:37 PM CDT [facility] eGFR >90 >90 mL/min/1.7 3 m2 06/19/2022 1:37 PM CDT [facility] Blood BLOOD SPECIMEN / Unknown 06/19/2022 1:35 PM CDT 06/19/2022 1:37 PM CDT cOhoa Warren MD LAB - POINT OF CARE ORDERABLES [place] [id number] [place] [address] * RIBOSOMAL P PROTEIN ANTIBODY (02/18/2021 10:48 AM CDT) Pathologist [facility] Antiribosomal P Antibody <0.2 0.0 - 0.9 AI [facility] INSURANCE BILL Comment:FASTING Blood BLOOD SPECIMEN / Unknown 02/18/2021 10:48 AM CDT 02/18/2021 Narrative Resulting Agency Comment Lab Testing performed at: [facility] [address] [facility] [phone] Breana Marvni MD LAB - CHEMISTRY BEA MOROCHO [facility] INSURANCE BILL [address] [place] [address] * (ABNORMAL) URINALYSIS MICROSCOPIC ONLY REFLEXED (02/18/2021 10:43 AM CDT) WBC UA 11-30(A) 0 - 5 /hpf [facility] INSURANCE BILL RBC UA 3-10(A) 0 - 2 /hpf [facility] INSURANCE BILL Epithelial Cells (non renal) 0-10 0 - 10 /hpf [facility] INSURANCE BILL Epithelial Cells (renal) NOT NEEDED [facility] INSURANCE BILL Comment:Ancillary determined the test is not needed. Casts ua None seen None seen /lpf [facility] INSURANCE BILL Casts UA NOT NEEDED [facility] INSURANCE BILL Comment:Ancillary determined the test is not needed. Crystals UA Present(A) N/A /lpf [facility] INSURANCE BILL Crystals UA Calcium Oxalate N/A [facility] INSURANCE BILL Mucus UA NOT NEEDED [facility] INSURANCE BILL Comment:Ancillary determined the test is not needed. Bacteria UA Moderate(A) None seen/Few [facility] INSURANCE BILL Yeast UA NOT NEEDED [facility] INSURANCE BILL Comment:Ancillary determined the test is not needed. Trichomonas UA NOT NEEDED [facility] INSURANCE BILL Comment:Ancillary determined the test is not needed. Comment Urine NOT NEEDED [facility] INSURANCE BILL Comment: FASTING Ancillary determined the test is not needed. 02/18/2021 10:4 3 AM CDT 02/18/2021 Narrative Resulting Agency Comment Lab Testing performed at: [facility] [address] [facility] [phone] Breana Marvin MD LAB - URINALYSIS ORD ERABLES [facility] INSURANCE BILL [address] [place] [address] * CARDIOLIPIN ANTIBODY IGG/IGM PANEL (02/18/2021 10:43 AM CDT) Cardiolipin Antibody IgG <9 0 - 14 GPL U/mL [facility] INSURANCE BILL Comment: Negative: <15 Indeterminate: 15 - 20 Low-Med Positive: >20 - 80 High Positive: >80 Cardiolipin Antibody IgM <9 0 - 12 MPL U/mL [facility] INSURANCE BILL Comment: Negative: <13 Indeterminate: 13 - 20 Low-Med Positive: >20 - 80 High Positive: >80 FASTING Blood BLOOD SPECIMEN / Unknown 02/18/2021 10:43 AM CDT 02/18/2021 Narrative Resulting Agency Comment [facility]: [facility] [address] [facility] [phone] Breana Marvin MD LAB - SEROLOGY ORDER NORMAN [facility] INSURANCE BILL [address] [place] [address] * LUPUS ANTICOAGULANT PANEL W RFLX (02/18/2021 10:43 AM CDT) PTT-LA 29.5 0.0 - 51.9 sec [facility] INSURANCE BILL dRVVT 28.0 0.0 - 47.0 sec [facility] INSURANCE BILL Interpretation Comment: [facility] INSURANCE BILL Comment: No lupus anticoagulant was detected. FASTING Blood BLOOD SPECIMEN / Unknown 02/18/2021 10:43 AM CDT 02/18/2021 Narrative Resulting Agency Comment Lab Testing performed at: [address] [phone] Breana Marvin MD LAB - HEMATOLOGY ORD ERABLES Performing Organization Address City/[facility]/ZIP Co de Phone Number [facility] INSURANCE BILL [address] [place] [address] * RHEUMATOID FACTOR BLOOD QUANTITATIVE (02/18/2021 10:43 AM CDT) Pathologist [facility] Rheumatoid Factor <15 <30 IU/mL [facility] INSURANCE BILL Comment:FASTING Blood BLOOD SPECIMEN / Unknown 02/18/2021 10:43 AM CDT 02/18/2021 Narrative Resulting Agency Comment Lab Testing performed at: [facility] [address] [facility] [phone] Breana Marvin MD LAB - CHEMISTRY ORDE RABLES [facility] INSURANCE BILL [address] [place] [address] * C-REACTIVE PROTEIN (02/18/2021 10:43 AM CDT) Pathologist [facility] C-Reactive Protein 0.35 <=0.50 mg/dL [facility] INSURANCE BILL Comment: FASTING Blood BLOOD SPECIMEN / Unknown 02/18/2021 10:43 AM CDT 02/18/2021 Narrative Resulting Agency Comment Lab Testing performed at: [facility] [address] [facility] [phone] Breana Marvin MD LAB - CHEMISTRY BEA MOROCHO [facility] INSURANCE BILL [address] [place] [address] * YARELY ANTIBODY PANEL (02/18/2021 10:43 AM CDT) Pathologist [facility] STOCK HANDLER FLOORPERSON Antibody <0.2 0.0 - 0.9 AI [facility] INSURANCE BILL Rucker (YARELY) Antibody <0.2 0.0 - 0.9 AI [facility] INSURANCE BILL Sjogren's Antibodies (SSA) <0.2 0.0 - 0.9 AI [facility] INSURANCE BILL Sjogren's Antibodies (SSB) <0.2 0.0 - 0.9 AI [facility] INSURANCE BILL Comment:FASTING Blood BLOOD SPECIMEN / Unknown 02/18/2021 10:43 AM CDT 02/18/2021 Narrative Resulting Agency Comment [facility]: [facility] [address] [facility] [phone] Breana Marvin MD LAB - CHEMISTRY BEA MOROCHO [facility] INSURANCE BILL [address] [place] [address] * BETA-2 GLYCOPROTEIN 1 ANTIBODY IGG/IGM PANEL (02/18/2021 10:43 AM CDT) Pathologist [facility] Beta-2 Glycoprotein I Antibody IgG <9 0 - 20 GPI IgG units [facility] INSURANCE BILL Comment: The reference interval reflects a 3SD or 99th percentile interval, which is thought to represent a potentially clinically significant result in accordance with the International Consensus Statement on the classification criteria for definitive antiphospholipid syndrome (APS). J Thromb Haem 2006;4:295-306. Beta-2 Glycoprotein I Antibody IgM <9 0 - 32 GPI IgM units [facility] INSURANCE BILL Comment: The reference interval reflects a 3SD or 99th percentile interval, which is thought to represent a potentially clinically significant result in accordance with the International Consensus Statement on the classification criteria for definitive antiphospholipid syndrome (APS). J Thromb Haem 2006;4:295-306. FASTING Blood BLOOD SPECIMEN / Unknown 02/18/2021 10:43 AM CDT 02/18/2021 Narrative Resulting Agency Comment Lab Testing performed at: [address] [phone] Breana Marvin MD LAB - CHEMISTRY ORDE RABCAT Performing Organization Address City/[facility] Co de Phone Number [facility] INSURANCE BILL [address] [place] [address] * DNA ANTIBODY DOUBLE STRANDED (02/18/2021 10:43 AM CDT) Anti-dsDNA Quantitative <1 0 - 9 IU/mL [facility] INSURANCE BILL Comment: Negative <5 Equivocal 5 - 9 Positive >9 FASTING Blood BLOOD SPECIMEN / Unknown 02/18/2021 10:43 AM CDT 02/18/2021 Narrative Resulting Agency Comment [facility] [address] [facility] [phone] Breana Marvin MD LAB - HEMATOLOGY ORD ERABLES Performing Organization Address City/[facility]/ZIP Co de Phone Number [facility] INSURANCE BILL [address] [place] [address] * (ABNORMAL) ERYTHROCYTE SEDIMENTATION RATE (02/18/2021 10:43 AM CDT) Erythrocyte Sedimentation Rate Westergren 28(H) 0 - 20 MM/HR [facility] INSURANCE BILL Comment:FASTING Blood BLOOD SPECIMEN / Unknown 02/18/2021 10:43 AM CDT 02/18/2021 Narrative Resulting Agency Comment Lab Testing performed at: [facility] [address] [facility] [phone] Breana Marvin MD LAB - HEMATOLOGY ORD ERABLES [facility] INSURANCE BILL [address] [place] [address] * PROTEIN CREATININE RATIO URINE RANDOM PNL (02/18/2021 10:43 AM CDT) Creatinine Urine 221.3 Not Estab. mg/dL [facility] INSURANCE BILL Protein Urine 12.4 Not Estab. mg/dL [facility] INSURANCE BILL Protein/Creatin ine Ratio 56 0 - 200 mg/g creat [facility] INSURANCE BILL Comment:FASTING Urine URINE SPECIMEN OBTAINED BY CLEAN CATCH PROCEDURE / Unknown 02/18/2021 10:43 AM CDT 02/18/2021 Narrative Resulting Agency Comment Lab Testing performed at: [facility] [address] [facility] [phone] Breana Marvin MD LAB - URINE CHEMISTR Y ORDERABLES Performing Organization Address [facility] Co de Phone Number [facility] INSURANCE BILL [address] [place] [address] * (ABNORMAL) COMPLEMENT C3 C4 PANEL (02/18/2021 10:43 AM CDT) Complement C3 181(H) 82 - 167 mg/dL [facility] INSURANCE BILL Complement C4 23 12 - 38 mg/dL [facility] INSURANCE BILL Comment:FASTING Blood BLOOD SPECIMEN / Unknown 02/18/2021 10:43 AM CDT 02/18/2021 Narrative Resulting Agency Comment Lab Testing performed at: [facility] [address] [facility] [phone] Breana Marvin MD LAB - CHEMISTRY ORDE RABCAT Performing Organization Address City/[facility]/ZIP Co de Phone Number [facility] INSURANCE BILL [address] [place] [address] Care Teams Glaze Maker Relationship Specialty Start Date End Date Sabra Pabon, SHAKER SCREEN OPERATOR-WATER PUMPING STATION ENGINEER [address] [place] [address] PCP - General 05/23/22
--- OUTSIDE RECORDS SUMMARY | 2024-12-28 14:30 | XMS_ITS | Data Portability ---
Author Organization [place] [facility], Main Office Address [address] [place] [address] Assessment No assessment recorded. Plan of Treatment Reminders Order Date Submit Date Provider Last Modified By Organization Details Last Modified Time Details Appointments None record ed. Lab None record ed. Referral None record ed. Procedures None record ed. Surgeries None record ed. Imaging None record ed. Medication Orders None record ed. Patient TargetsNo targets recorded. Patient InstructionsNo instructions recorded. Reason for Referral None Reported. Results Created Date Observation Date Name Description Value Unit Range Abnormal Flag Note LastModifiedBy Organization Detail LastModifiedTime 05/21/20 21 05/22/2021 ABO GROUP AND RH TYPE ABO group tnp TEST NOT PERFO RMED No suita ble speci men recei chance. Pleas e revie w the test requi remen ts at testd ireia ory.q uestd [employer] .[employer] Not Available [facility] [address] [place], [address], 05/22/2021 10:14:37 05/21/20 21 05/21/2021 pregn elke test, urine HCG negati ve Not Available [facility] [address] [place], [address], 05/20/2021 17:51:55 05/28/20 21 05/28/2021 ABO RH patient ABO group and Rh B positi ve Not Available [facility] (Lab) [address] [place] [address], [address], 05/28/2021 17:26:19 06/08/20 22 06/08/2022 pregn elke test, urine HCG negati ve Not Available [facility] [address] [facility], [place], [address], 06/08/2022 10:35:40 10/20/20 23 10/19/2023 compl ete PFT w/ post [facility] h[facility] ator radha metry * No observ ation record ed. BARCODE Not Available 2022 09:04:54 Result Notes None recorded. Problems Name Problem SNOMED Code Status Onset Date Resolution Date Notes Provider Name and Address Organization Details Recorded Time Family history of systemic lupus erythemat osus [id number] 190901 Active 2020 Not Available [facility] 3 22:41:38 Polycysti c ovary syndrome 618218809 Active 2020 Not Available [facility] 3 22:41:38 Headache 84125741 Active 2020 Not Available [facility] 3 22:41:38 Genital herpes simplex 38751371 Completed 202001/16/2021 Not Available [facility] 3 22:41:38 Obese 923634730 Active 2020 Not Available [facility] 3 22:41:38 Transient altered mental status 149942336 Active 2020 Not Available [facility] 3 22:41:38 Problem Notes None recorded. Procedures Surgical History Date Name Laterality Status Provider Name and Address Organization Details Recorded Time 10/14/20 17 Tonsillectomy completed Not Available [facility] 2022 22:41:13 02/25/20 12 repair of ovary completed Not Available [facility] 10/2022 22:41:13 02/25/20 12 appendectomy completed Not Available [facility] 023 22:41:13 Imaging Results Imaging Date Name Status LastModified by Organization Details LastModified Time 10/19/2023 complete PFT w/ post bronchodilator spirometry* completed BARCODE Information not available 10/20/2023 09:04:54 Procedure Notes None recorded. Medical Equipment None Reported. Medications Name Sig Start Date Stop Date Status Note LastModified by Organization Details LastModified Time medroxyprog esterone 10 mg tablet 05/20 completed Not Available Not Available Not Available prazosin 1 mg capsule TAKE 1 CAPSULE BY MOUTH THREE TIMES DAILY DIRECTED 04/23 completed Not Available Not Available Not Available metronidazo le 0.75 % (37.5 mg/5 gram) vaginal gel APPLY VAGINALLY EVERY NIGHT FOR 5 NIGHTS active Not Available Not Available No t Available hydroxyzine pamoate 50 mg capsule TAKE 1 CAPSULE BY MOUTH TWICE DAILY NEEDED 04/23 completed Not Available Not Available Not Available hydroxyzine HCl 50 mg tablet TAKE 1 TABLET BY MOUTH EVERY 12 HOURS NEEDED 04/23 completed Not Available Not Available Not Available valacyclovi r 500 mg tablet Take 1 tablet every day by oral route. active Not Available Not Available No t Available alprazolam 0.5 mg tablet active Not Available Not Available Not Available amitriptyli ne 10 mg tablet active Not Available Not Available Not Available metformin ER 500 mg tablet,exte nded release 24 hr TAKE 1 TABLET BY MOUTH EVERY DAY 08/12 completed Not Available Not Available Not Available sertraline 50 mg tablet TAKE 1 TABLET BY MOUTH EVERY DAY DIRECTED active Not Available Not Available No t Available hydroxyzine pamoate 25 mg capsule TAKE ONE CAPSULE BY MOUTH TWICE DAILY NEEDED FOR ANXIETY AND 2 CAPSULES EVERY NIGHT AT BEDTIME FOR SLEEP 04/23 completed Not Available Not Available Not Available escitalopra m 10 mg tablet TAKE 1 TABLET BY MOUTH EVERY DAY IN THE MORNING 06/08 completed Not Available Not Available Not Available BD Ultra-Fine Short Pen Needle 31 gauge x 16 10/19 completed Not Available Not Available Not Available tranexamic acid 650 mg tablet active Not Available Not Available Not Available Lo Loestrin Fe 1 mg-10 mcg (24)/10 mcg (2) tablet TAKE 1 TABLET BY MOUTH EVERY DAY 04/23 completed Not Available Not Available Not Available Saxenda 3 mg/0.5 mL (18 mg/3 mL) subcutaneou s pen injector 1.8 mg SC qd x1wk, then incr. dose by 0.6 mg/day qwk to target 3 mg SC qd active Not Available Not Available No t Available ID NOW COVID-19 Test Kit TEST DIRECTED TODAY 10/19 completed Not Available Not Available Not Available Wegovy 2.4 mg/0.75 mL subcutaneou s pen injector Inject 2.4 mg every week by subcutane ous route. active Not Available Not Available No t Available Wegovy 1.7 mg/0.75 mL subcutaneou s pen injector Inject 1.7 mg every week by subcutane ous route for 28 days. 04/23 completed Not Available Not Available Not Available Wegovy 1 mg/0.5 mL subcutaneou s pen injector Inject 1 mg every week by subcutane ous route. 12/18 completed Not Available Not Available Not Available Wegovy 0.25 mg/0.5 mL subcutaneou s pen injector INJECT 0.25MG SUBCUTANE OUSLY ONCE A WEEK, THEN CHANGE TO 0.5MG active Not Available Not Available No t Available Wegovy 0.5 mg/0.5 mL subcutaneou s pen injector 0.5 mg inj sq weekly for 4 weeks, then to 1 mg 12/18 completed Not Available Not Available Not Available Vitals Date Recorded Body mass index (BMI) Body height Oxygen saturation Oxygen saturation in Arterial blood by Pulse oximetry Heart rate Body temperature Body weight Systolic blood pressure Diastolic blood pressure Provider Name and Address Organization Details Last Updated DateTime 1 35.6 kg/m2 154.94 cm 97 % 97 % 107 /min 98.4 [degF] 05206.8 2 g 120 mm[Hg] 80 mm[Hg] Not Available [facility] 3 22:41:29 Date Recorded Body mass index (BMI) Body height Oxygen saturation Oxygen saturation in Arterial blood by Pulse oximetry Heart rate Body temperature Body weight Systolic blood pressure Diastolic blood pressure Provider Name and Address Organization Details Last Updated DateTime 1 37.4 kg/m2 154.94 cm 97 % 97 % 84 /min 97 [degF] 13912.2 9 g 122 mm[Hg] 78 mm[Hg] Not Available [facility] 3 22:41:29 Date Recorded Body mass index (BMI) Body height Oxygen saturation Oxygen saturation in Arterial blood by Pulse oximetry Heart rate Body temperature Body weight Systolic blood pressure Diastolic blood pressure Provider Name and Address Organization Details Last Updated DateTime 2 32.9 kg/m2 154.94 cm 99 % 99 % 83 /min 97.6 [degF] 17023.0 7 g 118 mm[Hg] 78 mm[Hg] Not Available [facility] 3 22:41:29 Social History Question Answer Notes LastModified by Organizat ion Details LastModified Time Tobacco Smoking Status Never Smoker Not Available [facility] 12/22/2022 22:41:02 What Is Your Level Of Alcohol Consumption? None MIGRATION.64845 [id number] Information not available 12/22/2022 Are You Blind Or Do You Have Difficulty Seeing? Yes Blurry Not As Good As It Use To Be MIGRATION.25411 75260 Information not available 12/22/2022 What Is Your Level Of Caffeine Consumption? Heavy Tea MIGRATION.67267 67643 Information not available 12/22/2022 In The 14 Days Before Symptom Onset, Have You Had Close Contact With A Laboratory-confir med COVID-19 While That Case Was Ill? No MIGRATION.83748 02096 Information not available 12/22/2022 In The 14 Days Before Symptom Onset, Have You Had Close Contact With A Person Who Is Under Investigation For COVID-19 While That Person Was Ill? No MIGRATION.10250 85925 Information not available 12/22/2022 Are You Deaf Or Do You Have Serious Difficulty Hearing? No MIGRATION.68847 19752 Information not available 12/22/2022 What Type Of Diet Are You Following? REGULAR MIGRATION.21061 28430 Information not available 12/22/2022 Which Illicit Or Recreational Drugs Have You Used? None MIGRATION.87938 83149 Information not available 12/22/2022 Do You Or Have You Ever Used E-cigarettes Or Vape? Never Used Electronic Cigarettes MIGRATION.39394 06740 Information not available 12/22/2022 What Is Your Occupation? [employer] MIGRATION.71347 45895 Information not available 12/22/2022 How Many Days Of Moderate To Strenuous Exercise, Like A Brisk Walk, Did You Do In The Last 7 Days? 5 MIGRATION.55035 64379 Information not available 12/22/2022 Have There Been Any Changes To Your Family Or Social Situation? Yes New Job/movin g MIGRATION.96819 15366 Information not available 12/22/2022 Do You Use Insect Repellent Routinely? No MIGRATION.02083 81618 Information not available 12/22/2022 Do You Have Any Pets? Yes MIGRATION.90750 65144 Information not available 12/22/2022 What Is Your Relationship Status? Single MIGRATION.12869 77319 Information not available 12/22/2022 Do You Use Your Seat Belt Or Car Seat Routinely? Yes MIGRATION.93703 55297 Information not available 12/22/2022 Do You Have Smoke And Carbon Monoxide Detectors In Your Home? Yes MIGRATION.48272 99574 Information not available 12/22/2022 Do You Or Have You Ever Used Smokeless Tobacco? Never Used Smokeless Tobacco MIGRATION.49890 88387 Information not available 12/22/2022 Are There Any Smokers In Your House? No MIGRATION.74508 59198 Information not available 12/22/2022 Do You Participate In Social Media? Yes MIGRATION.55322 54740 Information not available 12/22/2022 Do You Feel Stressed (tense, Restless, Nervous, Or Anxious, Or Unable To Sleep At Night)? [id number] MIGRATION.55834 56477 Information not available 12/22/2022 Do You Use Any Illicit Or Recreational Drugs? No MIGRATION.91531 11336 Information not available 12/22/2022 Do You Use Sunscreen Routinely? Yes MIGRATION.70019 55980 Information not available 12/22/2022 Has Tobacco Cessation Counseling Been Provided? No MIGRATION.69158 68324 Information not available 12/22/2022 Have You Recently Traveled Abroad? No MIGRATION.72585 96255 Information not available 12/22/2022 Do You Have Any Dietary Restrictions? No MIGRATION.77454 84446 Information not available 12/22/2022 Sex: Female Functional Status Question Answer Note LastModified by Organizat ion Details LastModified Time Do you have difficulty walking or climbing stairs? No MIGRATION.2953041 026 Information not available 12/22/2022 Do you have transportation difficulties? No MIGRATION.4989425 026 Information not available 12/22/2022 Are you able to walk? YESWOREST MIGRATION.6275608 026 Information not available 12/22/2022 Do you have difficulty doing errands alone? No MIGRATION.3140370 026 Information not available 12/22/2022 Are you able to care for yourself? Yes MIGRATION.6169866 026 Information not available 12/22/2022 Do you have difficulty dressing or bathing? No MIGRATION.0791460 026 Information not available 12/22/2022 What is your exercise level? Heavy MIGRATION.5622341 026 Information not available 12/22/2022 Mental Status Question Answer Note LastModified by Organizat ion Details LastModified Time Do you have difficulty concentrating, remembering or making decisions? No MIGRATION.974332401 6 Information not available 12/22/2022 Family History Relationship Description Onset Age of this Age Resolved Age Notes LastModified by Organization Details LastModified Time Mother Diabetes mellitus MIGRATION.887 [id number] Not available 12/22/2022 22:41:14 Mother Polycystic ovary syndrome MIGRATION.102 [id number] Not available 12/22/2022 22:41:14 Mother Lupus erythematosu s MIGRATION.374 3136843 Not available 12/22/2022 22:41:14 Unspecified Relation Autoimmune state Runs in her family MIGRATION.675 [id number] Not available 12/22/2022 22:41:14 Sister Polycystic ovary syndrome MIGRATION.076 1638176 Not available 12/22/2022 22:41:14 Maternal Uncle Malignant tumor of colon MIGRATION.768 [id number] Not available 12/22/2022 22:41:14 Paternal Grandmother Malignant tumor of ovary MIGRATION.975 [id number] Not available 12/22/2022 22:41:14 Medical History Condition Response BLINDNESS N RHEUMATIC FEVER N KIDNEY STONES N BLADDER PROBLEMS N MRSA N OTHER # 1 N POLIO N LUNG DISEASE/DISORDER N RADIATION / CHEMOTHERAPY N COPD N Other # 2 N BLOOD DISEASES N SURGERY N EAR OR HEARING PROBLEMS N MUMPS N FEMALE PROBLEMS / INFECTIONS N BOWEL PROBLEMS N DEPRESSION (INCLUDING POST ) N STROKE/TIA N THYROID DISEASE N ULCERS N BENIGN PROSTATIC HYPERPLASIA N MEASLES N CERVICALGIA N TB SKIN TEST N MYOCARDIAL INFARCTION N PARAPELGIA N OBESITY N GERD/NAUSEA N ANEURYSM N URINARY/BLADDER/KIDNEY PROBLEMS N CORONARY ARTERY DISEASE (CAD) N MENIERE'S DISEASE N ADDICTION CONCERNS N ENDOMETRIOSIS N USE OF BLOOD THINNERS N SKIN PROBLEMS N EMPHYSEMA N GASTROINTESTINAL DISORDER N MUSCLE,JOINT OR BONE PROBLEMS N GASTROINTESTINAL BLEEDING N BLOOD CLOTS N ASTHMA N CATARACTS N ERECTILE DYSFUNCTION N GI PROBLEMS N CHF N Low Testosterone N NEUROPATHY N INFERTILITY N AIDS/HIV N FRACTURES N CHEMOTHERAPY / RADIATION N VISION/EYE PROBLEMS N LIVER DISEASE N MALE HYPOGONADISM N HYPERTENSION N ANXIETY DISORDER N BLOOD TRANSFUSION N ANEMIA/BLOOD DISORDER N CHRONIC EAR INFECTIONS N BRONCHITIS N TUBERCULOSIS N GLAUCOMA N FOOT PROBLEM N DIVERTICULITIS N SLEEP APNEA N CHICKENPOX N ALLERGIES/HAYFEVER N INFECTIOUS DISEASE N PROSTATE N HEART ARRHYTHMIA N INSOMNIA N HIGH CHOLESTEROL / HYPERLIPIDEMIA N EYE PROBLEMS N HYPERTHYROIDISM N EATING DISORDER N NEUROLOGICAL PROBLEMS N EDEMA N CHRONIC PAIN SYNDROME N HYPOTHYROIDISM N CONSTIPATION N CAROTID BLOCKAGE N BACK / NECK PROBLEMS N HAVE YOU BEEN HOSPITALIZED OR SEEN IN [facility] IN THE PAST YEAR ? N ATHEROSCLEROSIS N BREAST PROBLEMS N DIALYSIS N ECZEMA N FIBROMYALGIA N OSTEOPOROSIS N ARTHRITIS N NO SIGNIFICANT PAST MEDICAL HISTORY N APPENDICITIS N DIABETES, TYPE N BAD TEETH N HEARTBURN / REFLUX N ADD/ADHD N AUTISM SPECTRUM DISORDER (ASD) N HEPATITIS / LIVER DISEASE N PULMONARY DISEASE N GOUT N SLEEP DISORDER N ALZHEIMER'S DISEASE N PAIN N DEMENTIA N HERPES N SEIZURES/EPILEPSY Y HEADACHES/MIGRAINES Y VASCULAR DISEASE N PACEMAKER N DIZZINESS Y HEART DISEASE/HEART PROBLEMS N KIDNEY DISEASE N SCARLET FEVER N MULTIPLE SCLEROSIS N DEVELOPMENTAL OR BEHAVIORAL DISORDERS N MENTAL DISORDER/ILLNESS N CANCER: SPECIFY N CARDIAC ARRHYTHMIA N PNEUMONIA N ATRIAL FIBRILLATION N Gall Stones N PULMONARY EMBOLISM N AUTOIMMUNE DISEASE N Gynecological History Statement/Question Response Flow Light Date of LMP 04/28/2022 Dislike of Light during Menstrual Headac he Y STIs/STDs Y Date of Last Pap 03/24/2022 Duration of Flow (days) Current Control Method BCPs Breast Problems none Sexually Active? Y Weight gain Y Menses Monthly Y Discharge none Obstetrics History GPAL:G 0 P 0 0 0 0 Past Encounters Encounter ID Performer Location Encounter Start Date Encounter Closed Date Diagnosis/Indication Diagnosis SNOMED-CT Code Diagnosis ICD10 Code Diagnosis Note [id number] [address] [address] 01/16/2021 00:00:00 01/16/2021 12:50:[id number] [address] 04/02/2021 00:00:00 04/02/2021 11:20:[id number] [address] 05/08/2021 00:00:00 05/08/2021 15:58:56 [id number] [facility] [address] [place] [address] 05/20/2021 00:00:00 05/20/2021 18:10:11 [id number] [facility] [address] [place] [address] 08/12/2021 00:00:00 08/12/2021 11:52:39 [id number] [facility] [address] [place] [address] 09/16/2021 00:00:00 09/16/2021 11:38:03 [id number] [facility] [address] [place] [address] 04/23/2022 00:00:00 04/23/2022 16:23:24 [id number] [facility] [address] [place] [address] 06/08/2022 00:00:00 06/08/2022 18:19:57 [id number] [facility] [address] Britt[address] Fariba, [address] [address] 01/08/2021 00:00:00 01/08/2021 13:19:32 [id number] [facility] [address] Brittani Fariba, [address] [address] 01/15/2021 00:00:00 01/15/2021 14:34:23 [id number] [facility] [address] Brittani Fariba, [address] [address] 01/29/2021 00:00:00 01/29/2021 18:01:47 [id number] [facility] [address] [place] [address] Fariba, [address] [address] 02/26/2021 00:00:00 02/26/2021 15:55:43 [id number] [facility] [address] [place] [address] Fariba, [address] [address] 05/07/2021 00:00:00 05/07/2021 17:53:34 [id number] [facility] [address] Link [address] [address] 06/17/2021 00:00:00 06/17/2021 18:47:31 [id number] [facility] [address] Britt[address] Link [address] [address] 09/02/2021 00:00:00 09/02/2021 19:32:59 [id number] [facility] Brittani Link [address] [address] 09/27/2022 00:00:00 09/27/2022 18:15:03 [id number] [facility] [address] Link [address] [address] 10/27/2022 00:00:00 10/27/2022 18:23:34 [id number] [facility] [address] Link [address] [address] 11/29/2022 00:00:00 11/29/2022 18:56:12 [id number] Oanh Ham NP [facility] [address] [address] 02/10/2023 10:48:24 02/10/2023 13:25:08 [id number] Oanh Ham NP [facility] [address] [address] 03/16/2023 17:30:53 03/18/2023 14:26:32 [id number] Oanh Ham NP [facility] Brittani Link [address] [address] 04/14/2023 14:38:07 04/14/2023 15:20:50 [id number] [facility] [address] Fariba [address] [address] 05/23/2023 10:18:44 05/23/2023 11:56:39 [id number] Oanh Ham NP [facility] [address] [place] Far[address] [address] 01/17/2024 16:36:29 01/19/2024 11:37:50 [id number] Oanh Ham NP [facility] [address] [place] Far[address] [address] 04/24/2024 10:06:28 04/24/2024 10:55:58 [id number] Oanh Ham NP [facility] [address] [place] Far[address] [address] 09/26/2024 11:44:48 09/26/2024 14:36:42 Health Concerns Section Related Observation LastModified by Organization Detai ls LastModified Time None Recorded Concern Status LastModified by Organization Details LastModified Time None Recorded Advance Directives Directive None Recorded Payers None recorded. OBGyn Episode No OBEpisode recorded.
--- OUTSIDE RECORDS SUMMARY | 2024-12-28 14:30 | XMS_ITS | Referral Summary ---
Author Organization [facility] Address [address] [place] [address] Care Team Providers Care Golf Course Superintendent Name Role Phone Sabra Pabon Ramiro PA-PER DIEM PHYSICAL THERAPIST ASSISTANT Primary Care Provider Source Comments [facility],non-owned Affiliates and Associated Physician Practices is amultiple site organization consisting of ambulatory clinics and hospital sitesin [place], [place], [place] and [place]. This disclosure is being madepursuant to the Care Everywhere program and may not contain all information available regarding this patient. Last updated 18.[facility] Allergies No known active allergies Medications * [...] medical care, and heating? Very hard 08/15/2024 [facility] - [facility] [...] any time in the past 12 m [facility], were you homeless or living in a care home (including now)? No 08/15/2024 Sex and [...] Mass Index 25.13 08/22/2024 8:36 PM CDT Functional Status Functional Status Response Date of Assess ment Is person deaf or have serious hearing difficult y? No 08/15/2024 Is person blind or have serious difficulty seein g? No 08/15/2024 Does person have serious dif ficulty walking/climbing stairs? No 08/15/2024 Does person have difficulty dressing/bathing? No 08/15/2024 Does person have difficulty doing errands alone? No 08/15/2024 Cognitive Status Response Date of Assessm ent Does person have difficulty concentrating/remembering/making decisions? No 08/15/2024 Plan of Treatment Not on file Procedures Procedure Name Priority Date/Time Associated Diagnosis Comments HIV-1 HIV-2 ANTIBODY + HIV P24 AG PANEL STAT 08/13/2024 3:29 PM CDT from Last 3 Months or Most Recently Relevant to Health Maintenance Results * HIV-1 HIV-2 ANTIBODY + HIV P24 AG PANEL (08/13/2024 3:29 PM CDT) HIV Antigen/Antibod y 1 & 2 Non-reacti ve Non-react polly 08/13/2024 4:24 PM CDT [facility] Comment:No Laboratory eviden ce of HIV infection. Blood BLOOD SPECIMEN / Unknown Venipuncture / Unknown 08/13/2024 3:29 PM CDT 08/13/2024 3:33 PM CDT [place] Renee MD LAB - CHEMISTRY ORD ERABLES [facility] [address] [place] [address], [facility] [phone] from Last 3 Months or Most Recently Relevant to Health Maintenance Advance Directives * Full Code (Latest Code Status on File) Date Activated Date Inactivated Comments 08/15/2024 3:33 AM 08/18/2024 5:01 PM Care Teams Golf Course Superintendent Relationship Specialty Start Date End Date Sabra Pabon APRN-PER DIEM PHYSICAL THERAPIST ASSISTANT [address] [place] [id number] PCP - General 05/23/22
--- OUTSIDE RECORDS SUMMARY | 2024-12-28 14:30 | XMS_ITS ---
Author Organization [facility] Address [address] [place] [address] Care Team Providers Care Certified Financial Planner Name Role Phone Oscar Allison Primary Care Provider [phone] REASON FOR VISIT Constipation Social History Sex Assigned At : Social History Observation Description Sex Assigned At Female Encounters Encounter Location Date Provider Diagnosis [address] [place] [address] 12/20/2024 Oscar Allison Plan Of Treatment No Information Progress Notes * Mary LOOMISOB:[birth year] (29 yo F)Acc No.[id number]:12/20/2024 Patient: Missy BASURTO :1995 A ge:29 Y S ex:Female Address:[address] [facility], [place] [address] * true * Date: Generated for Juan Pablo burk/Gene/eTransmitting on: 0 12/28/2024 02:29 PM PSYCHOMETRIST
--- OUTSIDE RECORDS SUMMARY | 2024-12-28 14:30 | XMS_ITS | Patient Health Record ---
Author Organization [facility] Address [address] [place] [address] Care Team Providers Care Java Security Architect Name Role Phone Oscar Allison Primary Care Provider Bernardo Anay Unavailable [phone] HernandezRandolph de paz Unavailable [phone] Allergies No Known Allergies Results Component Value Reference Range Notes Rapid Plasma Reagin (RPR) Te st With Reflex to Quantitative RPR and Confirmatory Treponema pallidum Antibodies Reviewed date:12/20/2024 02:16:45 PM Interpretation: Performing Lab:[facility] [place], [address] [facility], Phone - [phone], Director - Maritza Notes/Report: RPR Non Reactive Non Reactive CMP 14 Comprehensive Metabol ic Panel* Reviewed date:12/20/2024 02:16:36 PM Interpretation: Performing Lab:[facility] [place], [address] [facility], Phone - [phone], Director - Maritza Notes/Report: Glucose 90 70-99 mg/dL BUN 7 6-20 mg/dL Creatinine 0.61 0.57-1.00 mg/dL eGFR 122 >59 mL/min/1.73 BUN/Creatinine Ratio 11 9-23 Sodium 140 134-144 mmol/L Potassium 4.0 3.5-5.2 mmol/L Chloride 103 96-106 mmol/L Carbon Dioxide, Total 24 20-29 mmol/L Calcium 9.4 8.7-10.2 mg/dL Protein, Total 7.3 6.0-8.5 g/dL Albumin 4.2 3.9-4.9 g/dL Globulin, Total 3.1 1.5-4.5 g/dL Bilirubin, Total <0.2 0.0-1.2 mg/dL Alkaline Phosphatase 52 44-121 IU/L AST (SGOT) 15 0-40 IU/L ALT (SGPT) 12 0-32 IU/L Chlamydia/Gonococcus ARTURO ([id number])* Reviewed date:12/20/2024 02:16:25 PM Interpretation: Performing Lab:[facility] [address], Phone - [phone], [facility] Notes/Report: Chlamydia trachomatis, ARTURO Negative Negative Neisseria gonorrhoeae, ARTURO Negative Negative Hepatitis C Virus Antibody w /Rflx to Quantitative Real-time PCR ([id number]) Reviewed date:12/20/2024 02:16:17 PM Interpretation: Performing Lab:[facility] [address], Phone - [phone], [facility] Notes/Report: HCV Ab Non Reactive Non Reactive Interpretation: Not infected with HCV unless early or acute infection is suspected (which may be delayed in an immunocompromised individual), or other evidence exists to indicate HCV infection. C-Reactive Protein, Quant Reviewed date:12/20/2024 02:16:09 PM Interpretation: Performing Lab:[facility] [address] [place] [address], Phone - [phone], [facility] Notes/Report: C-Reactive Protein, Quant <1 0-10 mg/L Hepatitis B Surface Antigen (HBsAg Screen) Reviewed date:12/20/2024 02:15:57 PM Interpretation: Performing Lab:[facility] [address], Phone - [phone], [facility] Notes/Report: HBsAg Screen Negative Negative HIV Screen *HIV 1, 2 Ab, p24 Ag ([id number]) Reviewed date:12/20/2024 02:15:37 PM Interpretation: Performing Lab:[facility] [address], Phone - [phone], [facility] Notes/Report: HIV Ab/p24 Ag Screen Non Reactive Non Reactive HIV-1/HIV-2 antibodies and HIV-1 p24 antigen were NOT detected. There is no laboratory evidence of HIV infection. HIV Negative Test, Urine Reviewed date:02/16/2024 12:23:42 PM Interpretation: Performing Lab: Notes/Report: Test, Urine neg Negative - Negative Urinalysis In-House, Routine Reviewed date:02/16/2024 12:32:12 PM Interpretation: Performing Lab: Notes/Report: Leukocytes Small Nitrite, Urine Neg Urobilinogen,Semi-Qn 1.0 Protein 30 pH 6.0 Occult Blood trace Specific [place] >=1.030 Ketones neg Bilirubin small Glucose neg Reason For Referral No Information Medications Medication SIG (Take, Route, Frequency, Duration) Notes Start Date End Date Status QUEtiapine Fumarate 50 MG 1.5-2 tablets Orally once daily at bedtime as needed for sleep Active buPROPion HCl ER (XL) 150 MG 1 tablet in the morning Orally Once a day for 30 days Active metFORMIN HCl ER 500 MG 1 tablet with ev ening meal Orally Once a day for 30 days 09/28/2024 Active Albuterol Sulfate 108 (90 Base) MCG/ACT 1 puff as needed Inhalation every 4 hrs Active Multivitamin - 1 tablet Orally Once a day Active Escitalopram Oxalate 20 MG 1 tablet Oral ly once daily in the evening/at bedtime Active ARIPiprazole 10 MG 1 tablet Orally once daily in the evening/at bedtime Active Asmanex (30 Metered Doses) 220 MCG/ACT 1 PUFF Inhalation TWICE A DAY for 30 days As needed COUGH OR WHEEZING 09/26/2023 Active Social History Tobacco Use: Social History Observation Description Date Details (start date - stop date) Never Smoker NA - NA Sex Assigned At : Social History Observation Description Sex Assigned At Female Dont use, Tobacco Use/Smoking Question Answer Notes Are you a nonsmoker Tobacco Control (Standard) Question Answer Notes Tobacco use: Nonsmoker Problems Problem Type SNOMED Code ICD Code Onset Dates Problem Status W/U Status Risk Notes Problem Chronic rhinitis (08109221) Chronic rhinitis (J31.0) Active confirmed Problem Secondary amenorrhea (385698854) Secondary amenorrhea (N91.1) Active confirmed Problem Hyperlipidemia (32779564) Hyperlipidemia (E78.5) 09/28/20 24 Active confirmed Problem Depression (352251735) Depression (F32.9) 09/28/20 24 Active confirmed Problem Mood disorder (64481336) Mood disorder (F39) Active confirmed Problem Posttraumatic stress disorder (06135893) PTSD (post-traumatic stress disorder) (F43.10) Active confirmed Problem Anxiety (32173463) Anxiety (F41.9) Active confirmed Problem Vitamin D deficiency (30388153) Vitamin D deficiency (E55.9) Active confirmed Problem Allergic rhinitis (53981470) Allergic rhinitis (J30.9) Active confirmed Problem Asthma (371361313) Asthma (J45.909) Active confirmed Problem Thyroid nodule (653269485) Thyroid nodule (E04.1) Active confirmed Problem Sleep apnea (36978074) Sleep apnea (G47.30) Active confirmed Problem Inattention (39002280) Inattention (R41.840) Active confirmed Problem Polycystic ovary syndrome (disorder) (348975876) PCOS (polycystic ovarian syndrome) (E28.2) Active confirmed Problem Personality disorder (23459494) Personality disorder (F60.9) Active confirmed Vital Signs Heart Rate 94 /min 09/28/2024 Respiratory Rate 16 /min 09/28/2024 Oximetry 98 % 09/28/2024 Blood pressure diastolic 74 mm Hg 09/28/2024 Height 61 in 12/12/2024 Blood pressure systolic 118 mm Hg 09/28/2024 Weight 148 lbs 12/12/2024 BMI 27.96 kg/m2 12/12/2024 Encounters Encounter Location Date Provider Diagnosis [address] [place] [address] 02/16/2024 Oscar Allison Folliculitis L73.9 ; Dorsalgia of lumbosacral region M54.50 ; Secondary amenorrhea N91.1 ; PCOS (polycystic ovarian syndrome) E28.2 ; UTI (urinary tract infection) N39.0 ; Vitamin D deficiency E55.9 and Oral herpes B00.2 [facility] [address] [facility] [place] [address] 09/28/2024 Oscar lAlison Fatigue R53.83 ; Ast hma J45.909 ; PCOS (polycystic ovarian syndrome) E28.2 ; Dorsalgia of lumbosacral region M54.50 ; Hyperlipidemia E78.5 ; Depression F32.9 ; Impaired glucose tolerance R73.02 ; Nutritional counseling Z71.3 and Exposure to potential infection Z20.[address] [facility] [place] [address] 10/04/2024 Randolph Hernandez Mood disorder F39 ; Anxiety F41.9 ; Depression F32.9 ; PTSD (post-traumatic stress disorder) F43.10 ; Personality disorder F60.9 and Inattention R41.[address] [address] 11/08/2024 Randolph Hernandez Mood disorder F39 ; Anxiety F41.9 ; Depression F32.9 ; PTSD (post-traumatic stress disorder) F43.10 ; Personality disorder F60.9 ; Inattention R41.840 and Nutritional counseling Z71.[address] [address] 12/12/2024 Randolph Hernandez Mood disorder F39 ; Anxiety F41.9 ; Depression F32.9 ; PTSD (post-traumatic stress disorder) F43.10 ; Personality disorder F60.9 ; Inattention R41.840 and Nutritional counseling Z71.[address] [address] 02/15/2024 Oscar Allison [address] [address] 09/17/2024 Oscar Allison [facility] [address] [place] [address] 09/28/2024 Oscar Allison Asthma J45.[address] [address] 10/31/2024 Randolph Hernandez Mood disorder F39 [address] [address] 12/03/2024 Randolph Hernandez [address] [address] 12/04/2024 Randolph Hernandez Mood disorder F39 [address] [address] 12/20/2024 Oscar Allison Assessments Encounter Date Diagnosis (ICD Code) Assessment Notes Treatment Notes Treatment Clinical Notes Section Notes 02/16/2024 Folliculitis (ICD-10 - L73.9) COMPLETE BACTRIM DS FOR UTI. 09/28/2024 Asthma (ICD-10 - J45.909) 09/28/2024 Fatigue (ICD-10 - R53.83) 02/16/2024 Dorsalgia of lumbosacral region (ICD-10 - M54.50) DISCUSSED POSTURE, CORE EXERCISES. 09/28/2024 Asthma (ICD-10 - J45.909) 10/04/2024 Mood disorder (ICD-10 - F39) Duration (acute/chronic) , stability (controlled/unc ontrolled): Chronic, uncontrolled Current medications/eff icacy: No Previous medication trials: escitalopram (helps with depression, nothing else), sertraline, trazodone (ineffective for sleep alone), prazosin (lowered blood pressure) Current/previou s therapies: Not currently - wanting to establish with therapy again - has previously done therapy in the past for 2 years, reportedly previously working on workbook for DID and PTSD with previous therapist Examination as documented - see pertinent aspects of office visit documentation. Pertinent diagnostics: LABS COMPLETED IN 09/2024, SEE CHART Differential diagnoses: mixed anxiety/depress polly disorder vs possible bipolar spectrum disorder vs other mood disorder vs personality disorder (likely cluster B) vs combination thereof vs other RECOMMENDATIONS : START aripiprazole as prescribed to assist with mood (also wonder if patient has a DELUSIONAL DISORDER surrounding her relationship, see HPI for details) - educated patient/karla n on adverse effects, risks and benefits, as well as alternative treatments START quetiapine as prescribed to assist with sleep - educated patient/karla n on adverse effects, risks and benefits, as well as alternative treatments INCREASE escitalopram as prescribed to assist with anxiety/depress ion/mood - educated patient/karla n on adverse effects, risks and benefits, as well as alternative treatments Continue/modify other medications as prescribed - educated patient/karla n on adverse effects, risks and benefits, as well as alternative treatments Consume well balanced diet, preferably low in saturated fats (solid at room temperature, such as butter, margarine, Crisco, etc) and low in sodium (<2,000mg per day). Consume plenty of fruits/vegetabl es, healthy grains/whole grains, unsaturated/hea lthy fats (liquid at room temperature, such as olive oil, sunflower seed oil, canola, vegetable, etc.). Exercise regularly - Develop an exercise routine. 30 minutes of moderate exercise (walking at a brisk pace) 5 times per week is recommended. You should work hard enough to cause a sweat but still be able to talk with others while exercising. Exercise improves overall health - improves blood pressure and blood sugar, helps control weight, reduces stress, and improves mood. Practice stress reduction techniques, such as guided imagery, journaling, aromatherapy, acupuncture/acu pressure, deep breathing, etc. Practice healthy sleep hygiene - maintain regular routine, no caffeine after 1PM, no exercise 1-2 hours prior to bedtime, keep bedroom dark and cool, no TV or electronics while in bed. Consider melatonin as needed. Consider cognitive behavioral therapy for insomnia (CBT-I). Consider/Contin ue therapy. Consider/Contin ue substance cessation therapy as needed - contact office if desiring medication assisted therapy. Manage co-morbid conditions. Continue monitoring symptoms - report persistent or worsening/mohnider rning symptoms to the office or go to the ER. For mental health CRISIS, please reach out to [phone] (National Suicide and Crisis Lifeline), 911, go to the emergency department, or contact the [facility] Crisis Unit/Team. Follow up as scheduled in 1 week or sooner if necessary. Follow up with PCP and/or other specialists as advised. NEXT STEP: Consider increasing aripiprazole pending response/tolera bility. Consider increasing quetiapine pending response/tolera bility. Consider adding SNRI and/or switching escitalopram. Consider ADDING prazosin as needed for PTSD. Consider further medication adjustments as needed. possible delusional disorder surrounding relationship 10/04/2024 Anxiety (ICD-10 - F41.9) See assessment and plan for mood disorder 10/31/2024 Mood disorder (ICD-10 - F39) 11/08/2024 Mood disorder (ICD-10 - F39) Duration (acute/chronic) , stability (controlled/unc ontrolled): Chronic, noticeable improvement with recent medication adjustments, still some room for improvement, see HPI Current medications/eff icacy: Somewhat, room for improvement Previous medication trials: escitalopram (helps with depression, nothing else), sertraline, trazodone (ineffective for sleep alone), prazosin (lowered blood pressure) Current/previou s therapies: Not currently - wanting to establish with therapy again - has previously done therapy in the past for 2 years, reportedly previously working on workbook for DID and PTSD with previous therapist Examination as documented - see pertinent aspects of office visit documentation. Pertinent diagnostics: LABS COMPLETED IN 09/2024, SEE CHART Differential diagnoses: mixed anxiety/depress polly disorder vs possible bipolar spectrum disorder vs other mood disorder vs personality disorder (likely cluster B) vs combination thereof vs other RECOMMENDATIONS : INCREASE aripiprazole as prescribed to assist with mood (also wonder if patient has a DELUSIONAL DISORDER surrounding her relationship, see HPI for details) - educated patient/karla n on adverse effects, risks and benefits, as well as alternative treatments INCREASE quetiapine as prescribed to assist with sleep - educated patient/karla n on adverse effects, risks and benefits, as well as alternative treatments START bupropion as prescribed to assist with mood/concentrat ion/daytime fatigue - educated patient/karla n on adverse effects, risks and benefits, as well as alternative treatments Continue/modify other medications as prescribed - educated patient/karla n on adverse effects, risks and benefits, as well as alternative treatments Consume well balanced diet, preferably low in saturated fats (solid at room temperature, such as butter, margarine, Crisco, etc) and low in sodium (<2,000mg per day). Consume plenty of fruits/vegetabl es, healthy grains/whole grains, unsaturated/hea lthy fats (liquid at room temperature, such as olive oil, sunflower seed oil, canola, vegetable, etc.). Exercise regularly - Develop an exercise routine. 30 minutes of moderate exercise (walking at a brisk pace) 5 times per week is recommended. You should work hard enough to cause a sweat but still be able to talk with others while exercising. Exercise improves overall health - improves blood pressure and blood sugar, helps control weight, reduces stress, and improves mood. Practice stress reduction techniques, such as guided imagery, journaling, aromatherapy, acupuncture/acu pressure, deep breathing, etc. Practice healthy sleep hygiene - maintain regular routine, no caffeine after 1PM, no exercise 1-2 hours prior to bedtime, keep bedroom dark and cool, no TV or electronics while in bed. Consider melatonin as needed. Consider cognitive behavioral therapy for insomnia (CBT-I). Consider/Contin ue therapy. Consider/Contin ue substance cessation therapy as needed - contact office if desiring medication assisted therapy. Manage co-morbid conditions. Continue monitoring symptoms - report persistent or worsening/mohinder rning symptoms to the office or go to the ER. For mental health CRISIS, please reach out to [phone] (National Suicide and Crisis Lifeline), 911, go to the emergency department, or contact the [facility] Crisis Unit/Team. Follow up as scheduled in 4 weeks or sooner if necessary. Follow up with PCP and/or other specialists as advised. NEXT STEP: Consider increasing bupropion pending response/tolera bility. Consider increasing aripiprazole. Consider increasing quetiapine. Consider adding SNRI and/or switching escitalopram. Consider ADDING prazosin as needed for PTSD. Consider further medication adjustments as needed. possible delusional disorder surrounding relationship 12/04/2024 Mood disorder (ICD-10 - F39) 12/12/2024 Mood disorder (ICD-10 - F39) Duration (acute/chronic) , stability (controlled/unc ontrolled): Chronic, noticeable improvement with recent medication adjustments, still some room for improvement, see HPI Current medications/eff icacy: Somewhat, room for improvement Previous medication trials: escitalopram (helps with depression, nothing else), sertraline, trazodone (ineffective for sleep alone), prazosin (lowered blood pressure) Current/previou s therapies: Not currently - wanting to establish with therapy again - has previously done therapy in the past for 2 years, reportedly previously working on workbook for DID and PTSD with previous therapist Examination as documented - see pertinent aspects of office visit documentation. Pertinent diagnostics: LABS COMPLETED IN 09/2024, SEE CHART Differential diagnoses: mixed anxiety/depress polly disorder vs possible bipolar spectrum disorder vs other mood disorder vs personality disorder (likely cluster B) vs combination thereof vs other RECOMMENDATIONS : INCREASE aripiprazole as prescribed to assist with mood (also wonder if patient has a DELUSIONAL DISORDER surrounding her relationship, see HPI for details) - educated patient/karla n on adverse effects, risks and benefits, as well as alternative treatments Continue/modify other medications as prescribed - educated patient/karla n on adverse effects, risks and benefits, as well as alternative treatments Consume well balanced diet, preferably low in saturated fats (solid at room temperature, such as butter, margarine, Crisco, etc) and low in sodium (<2,000mg per day). Consume plenty of fruits/vegetabl es, healthy grains/whole grains, unsaturated/hea lthy fats (liquid at room temperature, such as olive oil, sunflower seed oil, canola, vegetable, etc.). Exercise regularly - Develop an exercise routine. 30 minutes of moderate exercise (walking at a brisk pace) 5 times per week is recommended. You should work hard enough to cause a sweat but still be able to talk with others while exercising. Exercise improves overall health - improves blood pressure and blood sugar, helps control weight, reduces stress, and improves mood. Practice stress reduction techniques, such as guided imagery, journaling, aromatherapy, acupuncture/acu pressure, deep breathing, etc. Practice healthy sleep hygiene - maintain regular routine, no caffeine after 1PM, no exercise 1-2 hours prior to bedtime, keep bedroom dark and cool, no TV or electronics while in bed. Consider melatonin as needed. Consider cognitive behavioral therapy for insomnia (CBT-I). Consider/Contin ue therapy. Consider/Contin ue substance cessation therapy as needed - contact office if desiring medication assisted therapy. Manage co-morbid conditions. Continue monitoring symptoms - report persistent or worsening/mohinder rning symptoms to the office or go to the ER. For mental health CRISIS, please reach out to [phone] (National Suicide and Crisis Lifeline), 911, go to the emergency department, or contact the [facility] Crisis Unit/Team. Follow up as scheduled in 4 weeks or sooner if necessary. Follow up with PCP and/or other specialists as advised. NEXT STEP: Consider increasing bupropion pending response/tolera bility. Consider increasing aripiprazole. Consider increasing quetiapine. Consider adding SNRI and/or switching escitalopram. Consider ADDING prazosin as needed for PTSD. Consider further medication adjustments as needed. 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 02/16/2024 PCOS (polycystic ovarian syndrome) (ICD-10 - E28.2) RESUME TRACEY IF INS. WILL COVER. 10/04/2024 PTSD (post-traumatic stress disorder) (ICD-10 - F43.10) See assessment and plan for mood disorder 11/08/2024 Depression (ICD-10 - F32.9) See assessment and plan for mood disorder 09/28/2024 Dorsalgia of lumbosacral region (ICD-10 - M54.50) LIKELY AMPLIFIED BY DEPRESSION 12/12/2024 Depression (ICD-10 - F32.9) See assessment and plan for mood disorder 12/12/2024 PTSD (post-traumatic stress disorder) (ICD-10 - F43.10) See assessment and plan for mood disorder 10/04/2024 Personality disorder (ICD-10 - F60.9) Suspect likely cluster B personality disorder, such as borderline personality disorder - See assessment and plan for mood disorder 11/08/2024 PTSD (post-traumatic stress disorder) (ICD-10 - F43.10) See assessment and plan for mood disorder 09/28/2024 Hyperlipidemia (ICD-10 - E78.5) 02/16/2024 UTI (urinary tract infection) (ICD-10 - N39.0) COMPLETE BACTRIM DS FROM URGENT CARE. 02/16/2024 Vitamin D deficiency (ICD-10 - E55.9) 09/28/2024 Depression (ICD-10 - F32.9) PSYCH EVAL PENDING 10/04/2024 Inattention (ICD-10 - R41.840) Duration (acute/chronic) , stability (controlled/unc ontrolled): Chronic, uncontrolled, patient not taking medication specifically for this Current medications/eff icacy: No Previous medication trials: escitalopram (helps with depression, nothing else), sertraline, trazodone (ineffective for sleep alone), prazosin (lowered blood pressure) Current/previou s therapies: Not currently - wanting to establish with therapy again - has previously done therapy in the past for 2 years, reportedly previously working on workbook for DID and PTSD with previous therapist Examination as documented - see pertinent aspects of office visit documentation. Pertinent diagnostics: LABS COMPLETED IN 09/2024, SEE CHART Differential diagnoses: suspect related to uncontrolled mood RECOMMENDATIONS : MANAGE mood/anxiety/de pression as advised - will consider medications specifically for this indication pending failure to improve with mood management Consume well balanced diet, preferably low in saturated fats (solid at room temperature, such as butter, margarine, Crisco, etc) and low in sodium (<2,000mg per day). Consume plenty of fruits/vegetabl es, healthy grains/whole grains, unsaturated/hea lthy fats (liquid at room temperature, such as olive oil, sunflower seed oil, canola, vegetable, etc.). Exercise regularly - Develop an exercise routine. 30 minutes of moderate exercise (walking at a brisk pace) 5 times per week is recommended. You should work hard enough to cause a sweat but still be able to talk with others while exercising. Exercise improves overall health - improves blood pressure and blood sugar, helps control weight, reduces stress, and improves mood. Practice stress reduction techniques, such as guided imagery, journaling, aromatherapy, acupuncture/acu pressure, deep breathing, etc. Practice healthy sleep hygiene - maintain regular routine, no caffeine after 1PM, no exercise 1-2 hours prior to bedtime, keep bedroom dark and cool, no TV or electronics while in bed. Consider melatonin as needed. Consider cognitive behavioral therapy for insomnia (CBT-I). Consider/Contin ue therapy. Consider/Contin ue substance cessation therapy as needed - contact office if desiring medication assisted therapy. Manage co-morbid conditions. Continue monitoring symptoms - report persistent or worsening/mohinder rning symptoms to the office or go to the ER. For mental health CRISIS, please reach out to [phone] (National Suicide and Crisis Lifeline), 911, go to the emergency department, or contact the [facility] Crisis Unit/Team. Follow up as scheduled in 1 week or sooner if necessary. Follow up with PCP and/or other specialists as advised. NEXT STEP: Consider further medication adjustments as needed. 11/08/2024 Personality disorder (ICD-10 - F60.9) Suspect likely cluster B personality disorder, such as borderline personality disorder - See assessment and plan for mood disorder 12/12/2024 Personality disorder (ICD-10 - F60.9) Suspect likely cluster B personality disorder, such as borderline personality disorder - See assessment and plan for mood disorder 12/12/2024 Inattention (ICD-10 - R41.840) Duration (acute/chronic) , stability (controlled/unc ontrolled): Chronic, improved since starting bupropion, see HPI Current medications/eff icacy: N/A Previous medication trials: escitalopram (helps with depression, nothing else), sertraline, trazodone (ineffective for sleep alone), prazosin (lowered blood pressure) Current/previou s therapies: Not currently - wanting to establish with therapy again - has previously done therapy in the past for 2 years, reportedly previously working on workbook for DID and PTSD with previous therapist Examination as documented - see pertinent aspects of office visit documentation. Pertinent diagnostics: LABS COMPLETED IN 09/2024, SEE CHART Differential diagnoses: suspect related to uncontrolled mood RECOMMENDATIONS : CONTINUE bupropion as prescribed to assist with mood/concentrat ion/daytime fatigue - educated patient/karla n on adverse effects, risks and benefits, as well as alternative treatments MANAGE mood/anxiety/de pression as advised - will consider medications specifically for this indication pending failure to improve with mood management Consume well balanced diet, preferably low in saturated fats (solid at room temperature, such as butter, margarine, Crisco, etc) and low in sodium (<2,000mg per day). Consume plenty of fruits/vegetabl es, healthy grains/whole grains, unsaturated/hea lthy fats (liquid at room temperature, such as olive oil, sunflower seed oil, canola, vegetable, etc.). Exercise regularly - Develop an exercise routine. 30 minutes of moderate exercise (walking at a brisk pace) 5 times per week is recommended. You should work hard enough to cause a sweat but still be able to talk with others while exercising. Exercise improves overall health - improves blood pressure and blood sugar, helps control weight, reduces stress, and improves mood. Practice stress reduction techniques, such as guided imagery, journaling, aromatherapy, acupuncture/acu pressure, deep breathing, etc. Practice healthy sleep hygiene - maintain regular routine, no caffeine after 1PM, no exercise 1-2 hours prior to bedtime, keep bedroom dark and cool, no TV or electronics while in bed. Consider melatonin as needed. Consider cognitive behavioral therapy for insomnia (CBT-I). Consider/Contin ue therapy. Consider/Contin ue substance cessation therapy as needed - contact office if desiring medication assisted therapy. Manage co-morbid conditions. Continue monitoring symptoms - report persistent or worsening/mohinder rning symptoms to the office or go to the ER. For mental health CRISIS, please reach out to [phone] (National Suicide and Crisis Lifeline), 911, go to the emergency department, or contact the [facility] Crisis Unit/Team. Follow up as scheduled in 4 weeks or sooner if necessary. Follow up with PCP and/or other specialists as advised. NEXT STEP: Consider increasing bupropion pending response/tolera bility. Consider further medication adjustments as needed. 11/08/2024 Inattention (ICD-10 - R41.840) Duration (acute/chronic) , stability (controlled/unc ontrolled): Chronic, uncontrolled, patient not taking medication specifically for this, open to trying bupropion, see HPI Current medications/eff icacy: N/A Previous medication trials: escitalopram (helps with depression, nothing else), sertraline, trazodone (ineffective for sleep alone), prazosin (lowered blood pressure) Current/previou s therapies: Not currently - wanting to establish with therapy again - has previously done therapy in the past for 2 years, reportedly previously working on workbook for DID and PTSD with previous therapist Examination as documented - see pertinent aspects of office visit documentation. Pertinent diagnostics: LABS COMPLETED IN 09/2024, SEE CHART Differential diagnoses: suspect related to uncontrolled mood RECOMMENDATIONS : START bupropion as prescribed to assist with mood/concentrat ion/daytime fatigue - educated patient/karla n on adverse effects, risks and benefits, as well as alternative treatments MANAGE mood/anxiety/de pression as advised - will consider medications specifically for this indication pending failure to improve with mood management Consume well balanced diet, preferably low in saturated fats (solid at room temperature, such as butter, margarine, Crisco, etc) and low in sodium (<2,000mg per day). Consume plenty of fruits/vegetabl es, healthy grains/whole grains, unsaturated/hea lthy fats (liquid at room temperature, such as olive oil, sunflower seed oil, canola, vegetable, etc.). Exercise regularly - Develop an exercise routine. 30 minutes of moderate exercise (walking at a brisk pace) 5 times per week is recommended. You should work hard enough to cause a sweat but still be able to talk with others while exercising. Exercise improves overall health - improves blood pressure and blood sugar, helps control weight, reduces stress, and improves mood. Practice stress reduction techniques, such as guided imagery, journaling, aromatherapy, acupuncture/acu pressure, deep breathing, etc. Practice healthy sleep hygiene - maintain regular routine, no caffeine after 1PM, no exercise 1-2 hours prior to bedtime, keep bedroom dark and cool, no TV or electronics while in bed. Consider melatonin as needed. Consider cognitive behavioral therapy for insomnia (CBT-I). Consider/Contin ue therapy. Consider/Contin ue substance cessation therapy as needed - contact office if desiring medication assisted therapy. Manage co-morbid conditions. Continue monitoring symptoms - report persistent or worsening/mohinder rning symptoms to the office or go to the ER. For mental health CRISIS, please reach out to [phone] ([employer] Suicide and Crisis Lifeline), 911, go to the emergency department, or contact the [facility] Crisis Unit/Team. Follow up as scheduled in 4 weeks or sooner if necessary. Follow up with PCP and/or other specialists as advised. NEXT STEP: Consider increasing bupropion pending response/tolera bility. Consider further medication adjustments as needed. 02/16/2024 Oral herpes (ICD-10 - B00.2) 09/28/2024 Impaired glucose tolerance (ICD-10 - R73.02) 09/28/2024 Nutritional counseling (ICD-10 - Z71.3) 11/08/2024 Nutritional counseling (ICD-10 - Z71.3) 12/12/2024 Nutritional counseling (ICD-10 - Z71.3) 09/28/2024 Exposure to potential infection (ICD-10 - Z20.9) Plan Of Treatment No Information Insurance Providers Payer Name Payer Address Payer Phone Subscriber Number Group Number Insured Name Patient Relationship to Insured Coverage Start Date Coverage End Date [facility] [address] [place] [phone] [id number] Missy Quinteros Self - patient is the insured 4 4 [employer] [facility] [address] [place] [address] [id number] Quinteros Kayar Self - patient is the insured 4 [facility] [address] [place] [phone] [id number] Missy Quinteros Self - patient is the insured 4 Medical (General) History Surgical History Surgery Date(Month/Year) appendectomy 2012 ovarian cyst resection 2012
--- OUTSIDE RECORDS SUMMARY | 2024-12-28 14:30 | XMS_ITS ---
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 Several days-1. 4. Trouble sleeping/relaxing , Several days-1. 5. Being so restless that it is hard to sit still , Several days-1. 6. Becoming easily annoyed or irritable , Several days-1.? 7. Feeling afraid, as if something awful might happen , Several days-1. SHIKHA-7 Score T otal score 7 : D epression Screening: PHQ-9 L ittle interest or pleasure in doing things?Not at all F eeling down, depressed, or hopeless S everal days T rouble falling or staying asleep, or sleeping too much S everal days F eeling tired or having little energy N early every day P oor appetite or overeating N ot at all F eeling bad about yourself or that you are a failure, or have let yourself or your family down S everal days T rouble concentrating on things, such as reading the newspaper or watching television N early every day M oving or speaking so slowly that other people could have noticed; or the opposite, being so fidgety or restless that you have been moving around a lot more than usual N ot at all T houghts that you would be better off or of hurting yourself in some way N ot at all T otal Score 9 I nterpretation M ild Depression Intervention D epression Screening Findings P ositive F ollow-Up for Depression N o Referral necessary, patient involved in behavioral health treatment S creening: Woodson Suicide Severity Rating Scale (LF) D o you want to initiate with S creener form 1 . Wish to be : Have you wished you were or wished you could go to sleep and not wake up? Y es 2 . Suicidal Thoughts: Have you actually had any thoughts of killing yourself? N o 6 . Suicide Behavior Question: Have you ever done anything,started to do anything, or prepared to end your life? N o I nterpretation: L ow Risk C SSRS Interpretation and Follow Up Plan: CSSRS Interpretation and Follow Up Plan C SSRS Screen documented using SF Y es R isk Disposition from SF L ow - No Follow Up Plan Required * ROS: P sych ROS: Constitutional A ll systems negative unless indicated otherwise.. P sych D enies AH/VH, Denies HI or recent suicidal ideation - PREVIOUSLY reported chronic passive SI with NO INTENT OR PLAN - possible/questionable delusional disorder surrounding relationship (see HPI for more details). * PSYCH ROS2: mood swings D enies mood lability. I nattention E ndorses attention deficits. C ompulsive behavior D enies compusive/impulsive behaviors. D epression E ndorses. M inge D enies symptoms of matt. A ppetite N ormal. C oncentration E ndorses c oncentration deficits. S ubstance use E ndorses,Caffeine. P anic attacks E ndorses. A nxiety/Worry E ndorses. I rritability E ndorses. S elf-Harm D enies. S leep E ndorses s leep difficulties. C omments S ubjective overall improvement with recent medication adjustments - See HPI for details. * Medical History: * Surgical History: a ppendectomy 2013ovarian cyst resection 2012 * Hospitalization/Major Diagno stic Procedure: * Family History: F ather: alive. M other: alive, DiabetesLupusKidney disease . 2 brother(s) , 4 sister(s) - healthy. . * Social History: P rimary Social History: L iving Arrangement L iving Arrangement: I ndependent I s this a supportive environment? Y es Alcohol Use A lcohol Use Frequency: N o Illicit Substance Usage I llicit Substance Usage: N o Employment Status E mployment Status: U nemployed T obacco Use: T obacco Control (Standard) T obacco use: N onsmoker * Medications: T akingAlbuterol Sulfate 108 (90 Base) MCG/ACT Aerosol Powder Breath Activated 1 puff as needed Inhalation every 4 hrs Multivitamin - Tablet 1 tablet Orally Once a day metFORMIN HCl ER 500 MG Tablet Extended Release 24 Hour 1 tablet with evening meal Orally Once a day Asmanex (30 Metered Doses) 220 MCG/ACT Aerosol Powder Breath Activated 1 PUFF Inhalation TWICE A DAY As needed COUGH OR WHEEZINGEscitalopram Oxalate 20 MG Tablet 1 tablet Orally once daily in the evening/at bedtime ARIPiprazole 5 MG Tablet 1 tablet Orally once daily in the evening/at bedtime QUEtiapine Fumarate 50 MG Tablet 1.5-2 tablets Orally once daily at bedtime as needed for sleep buPROPion HCl ER (XL) 150 MG Tablet Extended Release 24 Hour 1 tablet in the morning Orally Once a day Taking Albuterol Sulfate 108 (90 Base) MCG/ACT Aerosol Powder Breath Activated 1 puff as needed Inhalation every 4 hrs Taking Multivitamin - Tablet 1 tablet Orally Once a day Taking metFORMIN HCl ER 500 MG Tablet Extended Release 24 Hour 1 tablet with evening meal Orally Once a day Taking Asmanex (30 Metered Doses) 220 MCG/ACT Aerosol Powder Breath Activated 1 PUFF Inhalation TWICE A DAY As needed COUGH OR WHEEZINGTaking Escitalopram Oxalate 20 MG Tablet 1 tablet Orally once daily in the evening/at bedtime Taking ARIPiprazole 5 MG Tablet 1 tablet Orally once daily in the evening/at bedtime Taking QUEtiapine Fumarate 50 MG Tablet 1.5-2 tablets Orally once daily at bedtime as needed for sleep Taking buPROPion HCl ER (XL) 150 MG Tablet Extended Release 24 Hour 1 tablet in the morning Orally Once a day DiscontinuedErythromycin 2 % Solution 1 application Externally Twice a day As needed TO AFFECTED SKIN ON BACKVentolin HFA 108 (90 Base) MCG/ACT Aerosol Solution 2 puff as needed Inhalation every 4 hrs As needed DYSPNEAMedication List reviewed and reconciled with the patientDiscontinued Erythromycin 2 % Solution 1 application Externally Twice a day As needed TO AFFECTED SKIN ON BACKDiscontinued Ventolin HFA 108 (90 Base) MCG/ACT Aerosol Solution 2 puff as needed Inhalation every 4 hrs As needed DYSPNEAMedication List reviewed and reconciled with the patient Objective: * Vitals: I nitials: CJP, Wt:148, Ht: 61, BMI:27.96, LMP: 08/2024, Pain scale:0. * Examination: G eneral Examination: GENERAL APPEARANCE: U nable to perform physical examination - patient verbalizes no concerns during telephone communication. M ental Status Exam: SENSORIUM AND COGNITION A lert, Oriented to Person, Oriented to Place, Oriented to Time, Oriented to Situation. ATTENTION AND CONCENTRATION N o deficits. APPEARANCE U nable to assess due to telephone visit. ATTITUDE AND BEHAVIOR C ooperative. MEMORY G rossly intact. EYE CONTACT U nable to assess due to telephone visit. AFFECT U nable to assess due to telephone visit - inferred to be anxious/dysthymic based on conversation BUT improved from previous appointment. MOOD i nferred to be anxious/dysthymic based on conversation BUT improved from previous appointment. SPEECH QUANTITY A ppropriate. SPEECH QUALITY S pontaneous, Appropriate volume - previously very soft spoken. THOUGHT PROCESS C oherent and goal directed, slight circumstantiality noted. THOUGHT CONTENT A ppropriate - WNL. LANGUAGE A ppropriate- WNL. MOTOR ACTIVITY U nable to assess due to telephone visit - patient denies abnormal movements/gait. SUICIDAL IDEATION D enies recent suicidal ideation - PREVIOUSLY reported chronic passive suicidal ideation, NO INTENT OR PLAN. HOMICIDAL IDEATION D enies homicidal ideation. HALLUCINATIONS D enies hallucinations. INSIGHT F air. JUDGMENT F air. Assessment: * Assessment: 1. M ood disorder - F39 (Primary) 2 . A nxiety - F41.9 3 .?Depression - F32.9 4 . P TSD (post-traumatic stress disorder) - F43.10 5 . P ersonality disorder - F60.9 6 . I nattention - R41.840? 7. N utritional counseling - Z71.3 Plan: * Treatment: 2. A nxiety Notes: See assessment and plan for mood disorder 3. D epression Notes: See assessment and plan for mood disorder 4. P TSD (post-traumatic stress disorder) Notes: See assessment and plan for mood disorder 5. P ersonality disorder Notes: Suspect likely cluster B personality disorder, such as borderline personality disorder - See assessment and plan for mood disorder 6. I nattention Notes: Duration (acute/chronic), stability (controlled/uncontrolled): Chronic, improved since starting bupropion, see HPI Current medications/efficacy: N/A Previous medication trials: escitalopram (helps with depression, nothing else), sertraline, trazodone (ineffective for sleep alone), prazosin (lowered blood pressure) Current/previous therapies: Not currently - wanting to establish with therapy again - has previously done therapy in the past for 2 years, reportedly previously working on workbook for DID and PTSD with previous therapist Examination as documented - see pertinent aspects of office visit documentation. Pertinent diagnostics: LABS COMPLETED IN 09/2024, SEE CHART Differential diagnoses: suspect related to uncontrolled mood RECOMMENDATIONS: CONTINUE bupropion as prescribed to assist with mood/concentration/daytime fatigue - educated patient/guardian on adverse effects, risks and benefits, as well as alternative treatments MANAGE mood/anxiety/depression as advised - will consider medications specifically for this indication pending failure to improve with mood management Consume well balanced diet, preferably low in saturated fats (solid at room temperature, such as butter, margarine, Crisco, etc) and low in sodium (<2,000mg per day). Consume plenty of fruits/vegetables, healthy grains/whole grains, unsaturated/healthy fats (liquid at room temperature, such as [...] techniques, such as guided imagery, journaling, aromatherapy, acupuncture/acupressure, deep breathing, etc. Practice healthy sleep hygiene - maintain regular routine, no caffeine after 1PM, no exercise 1-2 hours prior to bedtime, keep bedroom dark and cool, no TV or electronics while in bed. Consider melatonin as needed. Consider cognitive behavioral therapy for insomnia (CBT-I). Consider/Continue therapy. Consider/Continue substance cessation therapy as needed - contact office if desiring medication assisted therapy. Manage co-morbid conditions. Continue monitoring symptoms - report persistent or worsening/concerning symptoms to the office or go to the ER. For mental health CRISIS, please reach out to [phone] ([place] Suicide and Crisis Lifeline), 911, go to the emergency department, or contact the [facility] Crisis Unit/Team. Follow up as scheduled in 4 weeks or sooner if necessary. Follow up with PCP and/or other specialists as advised. NEXT STEP: Consider increasing bupropion pending response/tolerability. Consider further medication adjustments as needed. * Procedure Codes: 3 008F BODY MASS INDEX [id number] MEDICAL NUTRITION, INDIV, [id number] TOBACCO NON-USER * Preventive Medicine: Counseling: C are goal follow-up plan: BMI management provided Y es Above Normal BMI Follow-up L ifestyle education regarding diet * Follow Up: 4 Weeks - TELEPHONE (Reason: 4 week psych follow up/med refill) * * STIGATOR OPERATOR Sign off status: Completed true * Provider: Leonor Hernandez APN Date: 12/12/2024 Generated for Juan Pablo burk/Gene/Nicolasaitting on: 0 12/28/2024 02:29 PM INVESTIGATOR OPERATOR History and Physical Notes * HPI (History of Present Illness) Category Sub-Category Detail Notes Category Not es Depression Screening PHQ-9 Little inte rest or pleasure in doing things: Not at all Feeling down, depressed, or hopeless: Se veral days Trouble falling or staying asleep, or sl eeping too much: Several days Feeling tired or having little energy: N early every day Poor appetite or overeating: Not at all Feeling bad about yourself o r that you are a failure, or have let yourself or your family down: Several days Trouble concentrating on thi ngs, such as reading the newspaper or watching television: Nearly every day Moving or speaking so slowly that other people could have noticed; or the opposite, being so fidgety or restless that you have been moving around a lot more than usual: Not at all Thoughts that you would be b tayler off or of hurting yourself in some way: Not at all Total Score: 9 Interpretation: Mild Depression Intervention Depression Screening Findings: P ositive Follow-Up for Depression: No Referral necessary, patient involved in behavioral health treatment SHIKHA-7 Screening 1. Feeling nervous, anxious, or on edg e , Several days-1 2. Not being able to stop or control wor rying , Several days-1 3. Worrying too much about different thi ngs , Several days-1 4. Trouble sleeping/relaxing , Several d ays-1 5. Being so restless that it is hard to sit still , Several days-1 6. Becoming easily annoyed or irritable , Several days-1 7. Feeling afraid, as if something awful might happen , Several days-1 SHIKHA-7 Score Total score: 7 : Screening Woodson Suicide Sev erity Rating Scale (LF) Do you want to initiate with: Screener form 1. Wish to be : Have you wished you were or wished you could go to sleep and not wake up?: Yes 2. Suicidal Thoughts: Have you actually had any thoughts of killing yourself?: No 6. Suicide Behavior Question: Have you ever done anything,started to do anything, or prepared to end your life?: No Interpretation:: Low Risk CSSRS Interpretation and Follow Up Plan CSSRS Interpretation and Follow Up Plan CSSRS Screen documented using SF: Yes Risk Disposition from SF: Low - No Follo w Up Plan Required Examination Category Sub-Category Detail Notes Category Not es General Examination GENERAL APPEARANCE: Unable t o perform physical examination - patient verbalizes no concerns during telephone communication Mental Status Exam SENSORIUM AND COGNITION Alert, Oriented to Person, Oriented to Place, Oriented to Time, Oriented to Situation ATTENTION AND CONCENTRATION No deficits APPEARANCE Unable to assess due to telephone visit ATTITUDE AND BEHAVIOR Cooperative MEMORY Grossly intact EYE CONTACT Unable to assess due to telephone visit AFFECT Unable to assess due to telephone visit - inferred to be anxious/dysthymic based on conversation BUT improved from previous appointment MOOD inferred to be anxio us/dysthymic based on conversation BUT improved from previous appointment SPEECH QUANTITY Appropriate SPEECH QUALITY Spontaneous, Appropr iate volume - previously very soft spoken THOUGHT PROCESS Coherent and goal di rected, slight circumstantiality noted THOUGHT CONTENT Appropriate - WNL MOTOR ACTIVITY Unable to assess due to telephone visit - patient denies abnormal movements/gait SUICIDAL IDEATION Denies recent suicid al ideation - PREVIOUSLY reported chronic passive suicidal ideation, NO INTENT OR PLAN HOMICIDAL IDEATION Denies homicidal kami ation HALLUCINATIONS Denies hallucination s INSIGHT Fair JUDGMENT Fair LANGUAGE Appropriate- WNL
--- NOTE | 2024-12-28 15:58 | ED_ITS ---
HPI - General Adult General Chief complaint: Unspecified Stated complaint: constipation Time Seen by Provider: 12/28/24 15:30 Focused HPI: Patient is a 29-year-old female who presents to the ER with complaints of constipation. She reports she last had a ?small bowel movement on Tuesday, 2 days ago. Patient reports she has not had a ?large bowel movement in 2 months. She reports she drinks lots of water and when she does have a bowel movement she notices ?bright red blood. Patient reports she has history of mental health issues and an appendectomy. She denies any vomiting, abdominal pain, fevers, urinary symptoms, or pelvic pain. Patient reports she has tried MiraLax, Dulcolax, and Colace at home without much success. GENERAL: Well-appearing, well-nourished, and in no acute distress. HEAD: Normocephalic, atraumatic. CHEST: Clear to auscultation. ?No respiratory distress. HEART: Regular rate and rhythm.? NEURO: ?Alert and oriented x3. Patient screened in triage and initial orders placed.? ?Additional care and disposition to be based upon?diagnostic testing and treatment. Related Data Allergies Allergy/AdvReac Type Severity Reaction Status Date / Time No Known Allergies Allergy Verified 12/28/24 14:33 [facility] Past Medical History Medical History History of asthma Course Vital Signs Vital signs: Vital Signs Temperature 36.7 C 12/28/24 14:27 Pulse Rate 92 12/28/24 14:27 Respiratory Rate 18 12/28/24 14:27 Blood Pressure 124/93 H 12/28/24 14:27 Pulse Oximetry 99 12/28/24 14:27 Oxygen Delivery Room Air 12/28/24 14:27 Temperature 36.8 C 12/28/24 17:50 Pulse Rate 88 12/28/24 17:50 Respiratory Rate 18 12/28/24 17:50 Blood Pressure 132/86 12/28/24 17:50 Pulse Oximetry 99 12/28/24 17:50 Oxygen Delivery Room Air 12/28/24 14:27 Medical Decision Making Vital Signs Vital Signs: Vital Signs Temperature 36.7 C 12/28/24 14:27 Pulse Rate 92 12/28/24 14:27 Respiratory Rate 18 12/28/24 14:27 Blood Pressure 124/93 H 12/28/24 14:27 Pulse Oximetry 99 12/28/24 14:27 Oxygen Delivery Room Air 12/28/24 14:27 Temperature 36.8 C 12/28/24 17:50 Pulse Rate 88 12/28/24 17:50 Respiratory Rate 18 12/28/24 17:50 Blood Pressure 132/86 12/28/24 17:50 Pulse Oximetry 99 12/28/24 17:50 Oxygen Delivery Room Air 12/28/24 14:27 Discharge Plan Discharge Clinical Impression: Constipation Patient Disposition: Elopement After Seen by Prov Condition: Stable Patient Language: Irish Prescriptions: No Action amoxicillin-pot clavulanate 875-125 mg tablet 1 tablet PO Q12H 7 Days Qty: 14 0RF triamcinolone acetonide 0.1 % cream 1 applic topical BID 7 Days Qty: 15 0RF cephalexin 500 mg capsule 500 mg PO Q6H 7 Days Qty: 28 0RF Follow-up/Referrals: Oscar Allison MD [Primary Care Provider] -
[2024-12-28 17:50] VITALS: BP 132/86; PULSE 88; RESP 18; TEMP 36.8; O2SAT 99
--- NOTE | 2024-12-28 22:30 | PC.NURSE ---
this RN attempted to call pt from waiting room at 2220 and again at 2230 with no answer. pt did not tell manager labor delivery if they were leaving ED.
--- OUTSIDE RECORDS SUMMARY | 2024-12-28 22:43 | XMS_ITS | Patient Health Summary ---
Author Organization [facility] Address [address] [place] [address] Care Team Providers Care Pit Crew Support Worker Name Role Phone Sabra Pabon Ramiro PA-SCHOOL AGE LEAD TEACHER Primary Care Provider Note from [facility],non-owned Affiliates and Associated Physician Practices is amultiple site organization consisting of ambulatory clinics and hospital sitesin [place], [place], [place] and [place]. This disclosure is being madepursuant to the Care Everywhere program and may not contain all information available regarding this patient. Last updated 18.[facility] [employer] Allergies No known active allergies Medications * [...] medical care, and heating? Very hard 08/15/2024 [facility] of Occupat ional Health - Occupational Stress [...] any time in the past 12 m [facility], were you homeless or living in a [place] health care facility (including now)? No 08/15/2024 Sex and Gender [...] of2 resultswithin the time period is included. [facility] Amphetamines Screen Urine Negative Negative: < 1000 ng/mL 08/23/2024 7:59 AM [facility] Barbiturates Screen Urine Negative Negative: < 200 ng/mL 08/23/2024 7:59 AM [facility] Benzodiazepine Screen Urine Negative Negative: < 200 ng/mL 08/23/2024 7:59 AM [facility] Opiates Urine Negative Negative: < 300 ng/mL 08/23/2024 7:59 AM [facility] Cocaine Metabolites Urine Negative Negative: < 300 ng/mL 08/23/2024 7:59 AM [facility] Phencyclidine Screen Urine Negative Negative: < 25 ng/ml 08/23/2024 7:59 AM [facility] Cannabinoids Screen Urine Negative Negative: <50 ng/mL 08/23/2024 7:59 AM [facility] Methadone Screen Urine Negative Negative: < 300 ng/mL 08/23/2024 7:59 AM [facility] Fentanyl Screen Urine Negative Negative: <1.5 ng/mL 08/23/2024 7:59 AM [facility] Urine URINE / Unknown Collection / Unknown 08/23/2024 7:25 AM CDT 08/23/2024 7:28 AM [facility] - 08/23/2024 7:59 AM CDT The Urine Toxicology Screening Panel does not screen for Propoxyphene, Meprobamate, Carisoprodol, Trazodone, pyex-war-[id number] medications and/or volatiles (Acetone, Isopropanol, Methanol or Ethylene Glycol). Ethanol, Salicylate, Acetaminophen, Tricyclic Antidepressants and several therapeutic drugs may be individually assayed in serum or plasma specimen. Toxicology testing by the [facility] is an aid to medical diagnosis and treatment of patients. No documented chain of custody was maintained. Results are intended to be used for clinical purposes only. David Patel MD LAB - URINE CHEMISTR Y ORDERABLES [facility] [address] [place] [address], [facility] [phone] * (ABNORMAL) CBC W AUTO DIFFERENTIAL (08/22/2024 10:43 PM T) Only the most recent of3 resultswithin the time period is included. WBC 6.3 4.0 - 10.7 x10E9/L 08/22/2024 11:04 PM [facility] RBC Count 3.96 3.90 - 5.20 x10E12/L 08/22/2024 11:04 PM [facility] Hemoglobin 11.2(L) 11.9 - 15.8 g/dL 08/22/2024 11:04 PM [facility] Hematocrit 32.4(L) 34.8 - 46.1 % 08/22/2024 11:04 PM [facility] MCV 81.8 80.0 - 98.0 fL 08/22/2024 11:04 PM [facility] MCH 28.3 26.7 - 33.6 pg 08/22/2024 11:04 PM [facility] MCHC 34.6 31.7 - 36.3 g/dL 08/22/2024 11:04 PM [facility] RDW-CV 13.9 11.3 - 14.8 % 08/22/2024 11:04 PM [facility] Platelet Count 232 150 - 420 x10E9/L 08/22/2024 11:04 PM [facility] MPV 11.0 7.8 - 11.4 fL 08/22/2024 11:04 PM [facility] Neutrophil % 54.9 41.0 - 74.0 % 08/22/2024 11:04 PM [facility] Lymphocyte % 28.8 17.0 - 47.0 % 08/[facility]24 [facility]ocyte % 10.3 3.0 - 11.0 % 08/22/2024 11:04 PM [facility] Eosinophil % 5.2 0.0 - 7.0 % 08/22/2024 11:04 PM [facility] Basophil % 0.5 0.0 - 1.6 % 08/22/2024 11:04 PM [facility] Immature Granulocytes % 0.3 0.0 - 1.0 % 08/22/2024 11:04 PM [facility] Neutrophil Absolute 3.46 1.60 - 7.50 x10E9/L 08/22/2024 11:04 PM [facility] Lymphocyte Absolute 1.82 1.00 - 4.40 x10E9/L 08/22/2024 11:04 PM [facility] Monocyte Absolute 0.65 0.15 - 1.00 x10E9/L 08/22/2024 11:04 PM [facility] Eosinophil Absolute 0.33 0.00 - 0.60 x10E9/L 08/22/2024 11:04 PM [facility] Basophil Absolute 0.03 0.00 - 0.13 x10E9/L 08/22/2024 11:04 PM [facility] Blood BLOOD SPECIMEN / Unknown Venipuncture / Unknown 08/22/2024 10:43 PM CDT 08/22/2024 11:01 PM CDT David Patel MD LAB - HEMATOLOGY ORD ERABLES [facility] [address] [place] [address], [facility] [phone] * (ABNORMAL) COMPREHENSIVE METABOLIC PANEL (08/22/2024 10:43 PM CDT) Only the most recent of3 resultswithin the time period is included. BUN 8 7 - 26 mg/dL 08/22/2024 11:26 PM T [facility] Creatinine 0.60 0.56 - 0.96 mg/dL 08/22/2024 11:26 PM [facility] Sodium 140 136 - 145 mmol/L 08/22/2024 11:26 PM [facility] Potassium 3.6 3.5 - 4.5 mmol/L 08/22/2024 11:26 PM [facility] Chloride 109(H) 98 - 107 mmol/L 08/22/2024 11:26 PM [facility] CO2 23 22 - 29 mmol/L 08/22/2024 11:26 PM [facility] Glucose 107(H) 70 - 99 mg/dL 08/22/2024 11:26 PM [facility] Calcium 9.2 8.4 - 10.2 mg/dL 08/22/2024 11:26 PM [facility] Protein Total 7.0 6.0 - 8.3 g/dL 08/22/2024 11:26 PM [facility] Albumin 3.7 3.4 - 5.0 g/dL 08/22/2024 11:26 PM [facility] Bilirubin Total 0.2 0.2 - 1.2 mg/dL 08/22/2024 11:26 PM [facility] Alkaline Phosphatase 44 40 - 150 U/L 08/22/2024 11:26 PM [facility] ALT 23 5 - 55 U/L 08/22/2024 11:26 PM [facility] AST 24 5 - 34 U/L 08/22/2024 11:26 PM [facility] Anion Gap 8 6 - 16 08/22/2024 11:26 PM [facility] BUN/Creatinine Ratio 13 7 - 23 08/22/2024 11:26 PM [facility] Osmolality Calculated 289 275 - 295 mOsm/kg 08/22/2024 11:26 PM [facility] Albumin/Globulin Ratio 1.1 1.1 - 2.3 08/22/2024 11:26 PM [facility] eGFR by CKD-EPI >90 >=90 mL/min/1.7 3 m2 08/22/2024 11:26 PM [facility] Blood BLOOD SPECIMEN / Unknown Venipuncture / Unknown 08/22/2024 10:43 PM CDT 08/22/2024 11:01 PM CDT David Patel MD LAB - CHEMISTRY [place]A [place] Performing Organization Address [facility] Co de Phone Number [address] [address], [facility] [phone] * HCG BETA BLOOD QUANTITATIVE (08/22/2024 10:43 PM CDT) Only the most recent of2 resultswithin the time period is included. [facility] Beta-hCG Total Quantitative <3 mIU/mL 08/22/2024 11:32 PM CDT [facility] Comment: HCG Numeric Result Interpretation: Non- Females: [...] - CHEMISTRY BEA [place]OCHO Performing Organization Address [facility] de Phone Number [address] [address], [facility] [phone] * ALCOHOL ETHYL BLOOD (08/22/2024 10:43 PM CDT) Only the most recent of2 resultswithin the time period is included. [facility] Ethanol (mg/dL) <10 <10 mg/dL 11:26 PM CDT [facility] Ethanol Calculated (g/dL) <0.010 <=0.010 g/dL 08/22/2024 11:26 PM CDT [facility] Blood BLOOD SPECIMEN / Unknown Venipuncture / Unknown 08/22/2024 10:43 PM CDT 08/22/2024 11:01 PM CDT Narrative [facility] - 08/22/2024 11:26 PM CDT Ethanol Interp <10: None Detected. Depression of BUSINESS RISK CONSULTANT: >100 mg/dl Potentially Critical: >250 mg/dl Potentially [...] Patel MD LAB - CHEMISTRY BEA MORO[place] [facility] Organization Address City/State/ZIP Co de Phone Number [facility] [address] [place] [address], [facility] [phone] * HEMOGLOBIN A1C (08/17/2024 6:48 AM CDT) [facility] Hemoglobin A1c 4.6 <5.7 % 08/17/2024 7:11 AM CDT [facility] Estimated Average Glucose 85 mg/dL 08/17/2024 7:11 AM CDT [facility] Blood BLOOD SPECIMEN / Unknown Venipuncture / Unknown 08/17/2024 6:48 AM CDT 08/17/2024 6:56 AM CDT [facility] - 08/17/2024 7:11 AM CDT HbA1c [...] (HbF) exceeds 5% in the specimen. The AirPR assay for the measurement of HbA1c is a National Glycohemoglobin Standardization Program (NGSP) certified method. Vasyl Bustamante MD LAB - CHEMISTRY [place] Performing Organization Address [facility] Co de Phone Number [facility] [address] [place] [address] * LIPID PROFILE (08/17/2024 6:48 AM CDT) Cholesterol 166 <200 mg/dL 08/17/2024 7:16 AM CDT [facility] Triglycerides 97 <150 mg/dL 08/17/2024 7:16 AM CDT [facility] HDL Cholesterol 42 >40 mg/dL 7:16 AM CDT [facility] LDL Calculated 105 <130 mg/dL 08/17/2024 7:16 AM CDT [facility] VLDL Calculated 19 <=30 mg/dL 7:16 AM CDT [facility] Chol HDL Ratio 4.0 <4.5 08/17/2024 7:16 AM CDT [facility] LDL/HDL Ratio 2.5 <5.0 08/17/2024 7:16 AM CDT [facility] Blood BLOOD SPECIMEN / Unknown Venipuncture / Unknown 08/17/2024 6:48 AM CDT 08/17/2024 6:56 AM CDT Vasyl Bustamante MD LAB - CHEMISTRY [place] Performing Organization Address [facility] Co de Phone Number [facility] [address] [place] [phone] * SYPHILIS ANTIBODY CASCADING REFLEX (08/13/2024 3:29 PM CDT) Treponema pallidum Antibody Non-react polly Non-react polly 08/13/2024 4:24 PM CDT [facility] Comment: No Laboratory evidence of syphilis infection. Note: Circulating antibodies may be low or undetectable in early infection. If recent exposure is suspected, re-draw sample in 2-4 weeks and repeat testing. Blood BLOOD SPECIMEN / Unknown Venipuncture / Unknown 08/13/2024 3:29 PM CDT 08/13/2024 3:33 PM CDT Berlin Renee MD LAB - SEROLOGY ORDE RABLES Performing Organization Address City/[facility]/ZIP Co de Phone Number [facility] [address] [place] [address], [facility] [phone] * (ABNORMAL) DRUG SCREEN EXPANDED TOXICOLOGY URINE PANEL (08/13/2024 3:29 PM CDT) [facility] Expanded Drug Screen, Urine Positive(A) Negative 08/14/2024 1:28 PM CDT [facility] Findings Caffeine Sertraline 08/14/2024 1:28 PM CDT [facility] Urine URINE / Unknown Collection / Unknown 08/13/2024 3:29 PM CDT 08/13/2024 3:33 PM CDT Narrative [facility] - 08/14/2024 1:28 PM CDT Testing performed by Liquid Chromatography-Quadrupole Time Flight Mass Spectrometry. While mass spectrometry is highly sensitive and specific, false-positive and false-negative findings may occur in rare circumstances. If consultation is needed, please contact the Clinical Pathology Resident personal injury litigation paralegal at [phone] (M-F, 8 am 5 pm) or [phone] after hours. This test does not include THC or barbiturates. This testing was developed by the [facility] in keeping with CLIA requirements. The test has not been cleared or approved by the U.S. Food and Drug Administration. Berlin Renee MD LAB - URINE RETAIL INTERIOR DESIGNER RY ORDERABLES Performing Organization Address City/[facility]/ZIP Co de Phone Number [facility] [address] [place] [address], [facility] [phone] * HIV-1 HIV-2 ANTIBODY + HIV P24 AG PANEL (08/13/2024 3:29 PM CDT) [facility] HIV Antigen/Antibod y 1 & 2 Non-reacti ve Non-react polly 08/13/2024 4:24 PM CDT [facility] Comment:No Laboratory eviden ce of HIV infection. Blood BLOOD SPECIMEN / Unknown Venipuncture / Unknown 08/13/2024 3:29 PM CDT 08/13/2024 3:33 PM CDT Berlin Renee MD LAB - CHEMISTRY ORD ERABLES [facility] [address] [place] [address], [facility] [phone] * (ABNORMAL) URINE MICROSCOPIC ONLY REFLEX TO CULTURE (08/13/2024 1:27 PM CDT) Reflex Status Culture to follow 08/13/2024 2:18 PM CDT [facility] WBC UA 21-50(A) None Seen, 0-5 /HPF 08/13/2024 2:18 PM CDT [facility] Bacteria UA Trace(A) None /HPF 08/13/2024 2:18 PM CDT [facility] Squamous Epithelial Cells UA 11-20(A) None Seen, 0-2, 3-5 /HPF 08/13/2024 2:18 PM CDT [facility] Mucus UA 4+ /LPF 08/13/2024 2:18 PM CDT [facility] Hyaline Casts UA >20(A) None Seen, 0-2 /LPF 08/13/2024 2:18 PM CDT [facility] Urine URINE SPECIMEN OBTAINED BY CLEAN CATCH PROCEDURE / Unknown Collection / Unknown 08/13/2024 1:27 PM CDT 08/13/2024 1:35 PM CDT Narrative [facility] - 08/13/2024 2:18 PM CDT Sanjeev Alvarez MD LAB - URINALYSIS ORD ERABLES [facility] [address] [place] [address], [place] [phone] * (ABNORMAL) URINALYSIS REFLEX MICROSCOPIC REFLEX CULTURE (08/13/2024 1:27 PM CDT) Only the most recent of2 resultswithin the time period is included. Color UA Debra(A) Straw, Yellow 08/13/2024 2:15 PM CDT [facility] Clarity UA Cloudy(A) Clear 08/13/2024 2:15 PM CDT [facility] Specific Antimony UA 1.028 1.005 - 1.030 08/13/2024 2:15 PM CDT [facility] pH UA 5.0 5.0 - 8.0 pH 08/13/2024 2:15 PM CDT [facility] Protein UA 2+(A) Negative 08/13/2024 2:15 PM CDT [facility] Glucose UA Negative Negative 08/13/2024 2:15 PM CDT [facility] Ketone UA Trace(A) Negative 08/13/2024 2:15 PM CDT [facility] Bilirubin UA Negative Negative 08/13/2024 2:15 PM CDT [facility] Blood UA Negative Negative 08/13/2024 2:15 PM CDT [facility] Nitrite UA Negative Negative 08/13/2024 2:15 PM CDT [facility] Leukocyte Esterase 3+(A) Negative 08/13/2024 2:15 PM CDT [facility] Urobilinogen UA 2.0(A) Negative mg/dL 08/13/2024 2:15 PM CDT [facility] Urine URINE SPECIMEN OBTAINED BY CLEAN CATCH PROCEDURE / Unknown Collection / Unknown 08/13/2024 1:27 PM CDT 08/13/2024 1:35 PM CDT [facility] - 08/13/2024 2:15 PM CDT Sanjeev Alvarez MD LAB - URINALYSIS ORD ERABLES [facility] [address] [place] [address], [facility] [phone] * CULTURE URINE (08/13/2024 1:27 PM CDT) [...] - MICROBIOLOGY O RDERABLES Performing Organization Address City/[facility]/ZIP Co de Phone Number [facility] [address] [place] [address], [facility] [phone] * TSH REFLEX FREE T4 (08/13/2024 12:56 PM CDT) TSH 0.442 0.350 - 4.940 uIU/mL 08/13/2024 3:50 PM CDT [facility] Blood BLOOD SPECIMEN / Unknown Venipuncture / Unknown 08/13/2024 12:56 PM CDT 08/13/2024 1:04 PM CDT Berlin Renee MD LAB - CHEMISTRY ORD ERABLES Performing Organization Address City/[facility]/ZIP Co de Phone Number [facility] [address] [place] [address], [place] [phone] * MRI BRAIN WWO CONTRAST (06/19/2022 2:25 [...] AM CDT MRI BRAIN WWO CONTRAST LOCATION [facility] DATE: 06/19/2022 2:27 PM EXAMINATION: Magnetic resonance [...] - 06/23/2022 MRI BRAIN WWO CONTRAST LOCATION [facility] DATE: 06/19/2022 2:27 PM EXAMINATION: Magnetic resonance [...] - 1.30 mg/dL 06/19/2022 1:37 PM CDT [facility] eGFR >90 >90 mL/min/1.7 3 m2 06/19/2022 1:37 PM CDT [facility] Blood BLOOD SPECIMEN / Unknown 06/19/2022 1:35 PM CDT 06/19/2022 1:37 PM CDT Ochoa Warren MD LAB - POINT OF CARE ORDERABLES [place] [id number] [place] [address] * RIBOSOMAL P PROTEIN ANTIBODY (02/18/2021 10:48 AM CDT) Pathologist [facility] Antiribosomal P Antibody <0.2 0.0 - 0.9 AI [facility] INSURANCE BILL Comment:FASTING Blood BLOOD SPECIMEN / Unknown 02/18/2021 10:48 AM CDT 02/18/2021 Narrative Resulting Agency Comment Lab Testing performed at: [facility] [address] [facility] [phone] Breana Marvin MD LAB - CHEMISTRY BEA [place]ORO[place] [facility] INSURANCE BILL [address] [place] [address] * (ABNORMAL) URINALYSIS MICROSCOPIC ONLY REFLEXED (02/18/2021 [...] Resulting Agency Comment Lab Testing performed at: [facility] [address] [facility] [phone] Breana Marvin MD LAB - URINALYSIS ORD ERABLES [facility] INSURANCE BILL [address] [place] [address] * CARDIOLIPIN ANTIBODY IGG/IGM PANEL (02/18/2021 10:43 [...] Resulting Agency Comment [facility]: [facility] [address] [facility] [phone] Breana Marvin MD LAB - SEROLOGY ORDER NORMAN [facility] INSURANCE BILL [address] [place] [address] * LUPUS ANTICOAGULANT PANEL W RFLX (02/18/2021 10:43 AM CDT) PTT-LA 29.5 0.0 - 51.9 sec [facility] INSURANCE BILL dRVVT 28.0 0.0 - 47.0 sec [facility] INSURANCE BILL Interpretation Comment: [facility] INSURANCE BILL Comment: No lupus anticoagulant was detected. FASTING Blood BLOOD SPECIMEN / Unknown 02/18/2021 10:43 AM CDT 02/18/2021 Narrative Resulting Agency Comment Lab Testing performed at: [address] [phone] Breana Marvin MD LAB - HEMATOLOGY ORD ERABLES Performing Organization Address City/[facility]/ZIP Co de Phone Number [facility] INSURANCE BILL [address] [place] [address] * RHEUMATOID FACTOR BLOOD QUANTITATIVE (02/18/2021 10:43 AM CDT) Pathologist [facility] Rheumatoid Factor <15 <30 IU/mL [facility] INSURANCE BILL Comment:FASTING Blood BLOOD SPECIMEN / Unknown 02/18/2021 10:43 AM CDT 02/18/2021 Narrative Resulting Agency Comment Lab Testing performed at: [facility] [address] [facility] [phone] Breana Marvin MD LAB - CHEMISTRY ORDE RABLES [facility] INSURANCE BILL [address] [place] [address] * C-REACTIVE PROTEIN (02/18/2021 10:43 AM CDT) Pathologist [facility] C-Reactive Protein 0.35 <=0.50 mg/dL [facility] INSURANCE BILL Comment: FASTING Blood BLOOD SPECIMEN / Unknown 02/18/2021 10:43 AM CDT 02/18/2021 Narrative Resulting Agency Comment Lab Testing performed at: [facility] [address] [facility] [phone] Breana Marvin MD LAB - CHEMISTRY BE[place]ORO[place] [facility] INSURANCE BILL [address] [place] [address] * YARELY ANTIBODY PANEL (02/18/2021 10:43 AM CDT) Pathologist [facility] TURKEY ROLL MAKER Antibody <0.2 0.0 - 0.9 AI [facility] INSURANCE BILL Rucker (YARELY) Antibody <0.2 0.0 - 0.9 AI [facility] INSURANCE BILL Sjogren's Antibodies (SSA) <0.2 0.0 - 0.9 AI [facility] INSURANCE BILL Sjogren's Antibodies (SSB) <0.2 0.0 - 0.9 AI [facility] INSURANCE BILL Comment:FASTING Blood BLOOD SPECIMEN / Unknown 02/18/2021 10:43 AM CDT 02/18/2021 Narrative Resulting Agency Comment Lab Testing performed [facility]: [facility] [address] [facility] [phone] Breana Marvin MD LAB - CHEMISTRY BEA [place]ORO[place] [facility] INSURANCE BILL [address] [place] [address] * BETA-2 GLYCOPROTEIN 1 ANTIBODY IGG/IGM PANEL (02/18/2021 10:43 AM CDT) Pathologist [facility] Beta-2 Glycoprotein I Antibody IgG <9 0 [...] Resulting Agency Comment Lab Testing performed at: [address] [phone] Breana Marvin MD LAB - CHEMISTRY ORDE RABCAT Performing Organization Address City/[facility] Co de Phone Number [facility] INSURANCE BILL [address] [place] [address] * DNA ANTIBODY DOUBLE STRANDED (02/18/2021 10:43 AM CDT) Anti-dsDNA Quantitative <1 0 - 9 IU/mL [facility] INSURANCE BILL Comment: Negative <5 Equivocal 5 - 9 Positive >9 FASTING Blood BLOOD SPECIMEN / Unknown 02/18/2021 10:43 AM CDT 02/18/2021 Narrative Resulting Agency Comment Lab Testing performed [facility]: [facility] [address] [facility] [phone] Breana Marvin MD LAB - HEMATOLOGY ORD ERABLES Performing Organization Address City/[facility]/ZIP Co de Phone Number [facility] INSURANCE BILL [address] [place] [address] * (ABNORMAL) ERYTHROCYTE SEDIMENTATION RATE (02/18/2021 10:43 AM CDT) Erythrocyte Sedimentation Rate Westergren 28(H) 0 - 20 MM/HR [facility] INSURANCE BILL Comment:FASTING Blood BLOOD SPECIMEN / Unknown 02/18/2021 10:43 AM CDT 02/18/2021 Narrative Resulting Agency Comment Lab Testing performed at: [facility] [address] [facility] [phone] Breana Marvin MD LAB - HEMATOLOGY ORD ERABLES [facility] INSURANCE BILL [address] [place] [address] * PROTEIN CREATININE RATIO URINE RANDOM PNL [...] Resulting Agency Comment Lab Testing performed at: [employer] [facility] [address] [facility] [phone] Breana Marvin MD LAB - URINE CHEMISTR Y ORDERABLES Performing Organization Address [facility] Co de Phone Number [facility] INSURANCE BILL [address] [place] [address] * (ABNORMAL) COMPLEMENT C3 C4 PANEL (02/18/2021 10:43 AM CDT) Complement C3 181(H) 82 - 167 mg/dL [facility] INSURANCE BILL Complement C4 23 12 - 38 mg/dL [facility] INSURANCE BILL Comment:FASTING Blood BLOOD SPECIMEN / Unknown 02/18/2021 10:43 AM CDT 02/18/2021 Narrative Resulting Agency Comment Lab Testing performed at: [facility] [address] [facility] [phone] Breana Marvin MD LAB - CHEMISTRY ORDE RABCAT Performing Organization Address City/[facility]/ZIP Co de Phone Number [facility] INSURANCE BILL [address] [place] [address] Care Teams Pit Crew Support Worker Relationship Specialty Start Date End Date Sabra Pabon, RN [employer] LEAD TEACHER [address] [place] [address] PCP - General 05/23/22
--- OUTSIDE RECORDS SUMMARY | 2024-12-28 22:43 | XMS_ITS | Referral Summary ---
Author Organization [facility] Address [address] [place] [address] Care Team Providers Care Metal Tile Setter Name Role Phone Sabra Pabon Ramiro PA-GOAT HERDER Primary Care Provider Source Comments [facility] [employer],non-owned Affiliates and Associated Physician Practices is amultiple site organization consisting of ambulatory clinics and hospital sitesin [place], [place], [place] and [place]. This disclosure is being madepursuant to the Care Everywhere program and may not contain all information available regarding this patient. Last updated 18.[facility] [employer] Allergies No known active allergies Medications * [...] medical care, and heating? Very hard 08/15/2024 [facility] - Occupational [...] in the past 12 m [facility], were you homeless or living in a long term (including now)? No 08/15/2024 Sex and Gender [...] ve Non-react polly 08/13/2024 4:24 PM CDT [facility] Comment:No Laboratory eviden ce of HIV infection. Blood BLOOD SPECIMEN / Unknown Venipuncture / Unknown 08/13/2024 3:29 PM CDT 08/13/2024 3:33 PM CDT [place] Renee MD LAB - CHEMISTRY ORD ERABLES [facility] [address] [place] [address], [facility] [phone] from Last 3 Months or Most Recently Relevant to Health Maintenance Advance Directives * Full Code (Latest Code Status on File) Date Activated Date Inactivated Comments 08/15/2024 3:33 AM 08/18/2024 5:01 PM Care Teams Metal Tile Setter Relationship Specialty Start Date End Date Sabra Pabon APRN-GOAT HERDER [address] [place] [phone] PCP - General 05/23/22
--- OUTSIDE RECORDS SUMMARY | 2024-12-28 22:43 | XMS_ITS | Clinical Summary ---
Author Organization [facility] Address [address] [place] [address] Care Team Providers Care Surface Ship Usw Supervisor Name Role Phone Sabra Pabon Ramiro PA-AMMONIA SOLUTION PREPARER Primary Care Provider Source Comments [facility] [employer],non-owned Affiliates and Associated Physician Practices is amultiple site organization consisting of ambulatory clinics and hospital sitesin [place], [place], [place] and [place]. This disclosure is being madepursuant to the Care Everywhere program and may not contain all information available regarding this patient. Last updated 18.[facility] [employer] Allergies No known active allergies Medications * [...] medical care, and heating? Very hard 08/15/2024 [facility] - Occupational [...] any time in the past 12 m [facility], were you homeless or living in [...] ve Non-react polly 08/13/2024 4:24 PM CDT [facility] Comment:No Laboratory eviden ce of HIV infection. Blood BLOOD SPECIMEN / Unknown Venipuncture / Unknown 08/13/2024 3:29 PM CDT 08/13/2024 3:33 PM CDT [place] Renee MD LAB - CHEMISTRY ORD ERABLES [facility] [address] [place] [address], [facility] [phone] from Last 3 Months or Most Recently Relevant to Health Maintenance Advance Directives * Full Code (Latest Code Status on File) Date Activated Date Inactivated Comments 08/15/2024 3:33 AM 08/18/2024 5:01 PM Care Teams Surface Ship Usw Supervisor Relationship Specialty Start Date End Date Sabra Pabon, SHEAR GRINDER OPERATOR-AMMONIA SOLUTION PREPARER [address] [place] [phone] PCP - General 05/23/22
== END 2024-12-28 22:30 | disposition left against medical advice (07) ==
LOC: ANHED 22:41
PROVIDERS: Emergency Provider Registered Nurse; PCP Internal Medicine
DX: K59.00 Constipation, unspecified (principal); J45.909 Unspecified asthma, uncomplicated
CPT/HCPCS: 74018; 99283